=== PATIENT | male | born 1930 | race Caucasian/White ===

== ENCOUNTER 2017-12-09 16:02 | Inpatient (IN) ==
--- OUTSIDE RECORDS SUMMARY | 2017-12-09 16:16 | External Medical Summary | Referral Summary ---
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 Discharge Diagnosis: Benign essential hypertension Discharge Diagnosis: Diabetes mellitus, type 2 Discharge Diagnosis: Pure hypercholesterolemia Discharge Disposition: 01-Home or Self Care Attending Physician: Aakash Amos MD Admitting Physician: Aakash Amos MD Vital Signs Most recent to oldest [Reference Range]: 1 Temperature Tympanic [36.6-38.1 degC] 36.3 degC *LOW* (02/13/17 2:14 PM) Peripheral Pulse Rate [60-100 bpm] 80 bpm (02/13/17 2:14 PM) Respiratory Rate [14-20 br/min] 16 br/min (02/13/17 2:14 PM) Blood Pressure [90-140/60-90 mmHg] 104/56 mmHg (02/13/17 2:14 PM) Problem List Condition Effective Dates Status Health Status Informant Acquired deviated nasal Active septum(Confirmed) Anxiety(Confirmed) Resolved Aortic aneurysm(Confirmed) Active Arthritis(Confirmed) Active Benign essential hypertension Active (disorder)(Confirmed) Hyperplasia of prostate, Active unspecified, without urinary obstruction and other lower urinary symptoms (LUTS)(Confirmed) CAD(Confirmed) Resolved Cerebrovascular accident(Confirmed) Active Congestive heart failure, Active unspecified(Confirmed) COPD(Confirmed) Resolved Coronary arteriosclerosis Active (disorder)(Confirmed) Depression(Confirmed) Resolved Diabetes(Confirmed) Resolved Hyperlipidemia(Confirmed) Resolved Hyperplasia(Confirmed) Resolved Obesity(Confirmed) Active patient Prostatitis(Confirmed) Resolved Pure hypercholesterolemia Active (disorder)(Confirmed) Tobacco user(Confirmed) Active patient Diabetes mellitus, type 2(Confirmed) Active Allergies, Adverse Reactions, Alerts Substance Reaction Severity Status citalopram Nervous, Jittery Active Medications aspirin 81 mg, Oral, Daily, 0 Refill(s) Start Date: 09/06/14 Status: OrderedAstelin 137 mcg/inh nasal spray 1 sprays, Nasal, BID, in each nostril, # 1 Each, 1 Refill(s), Pharmacy: [id number] Start Date: 04/07/15 Status: Orderedatorvastatin 20 mg oral tablet See Instructions, TAKE 1 TABLET BY MOUTH EVERY EVENING, # 90 tabs, 5 Refill(s), eRx: [id number] Start Date: 12/02/16 Status: Orderedciclopirox 0.77% topical cream kwan, Topical, BID, 0 Refill(s) Start Date: 01/23/14 Status: Orderedclotrimazole-betamethasone 1%-0.05% topical cream See Instructions, APPLY TOPICALLY TWICE DAILY, # 45 g, eRx: [facility] [id number], APPLY TOPICALLY TWICE DAILY Start Date: 03/01/16 Status: Ordereddicyclomine 20 mg oral tablet 20 mg 1 tabs, Oral, QID, Anxiety, # 30 tabs, 0 Refill(s), Pharmacy: [id number], 1 tabs Oral QID,PRN:Anxiety Start Date: 11/07/16 Status: Orderedferrous sulfate 325 mg (65 mg elemental iron) oral tablet See Instructions, TAKE 1 TABLET BY MOUTH EVERY DAY, # 80 tabs, 2 Refill(s), eRx : [facility] [id number] Start Date: 12/16/16 Status: Orderedfinasteride 5 mg oral tablet See Instructions, TAKE 1 TABLET BY MOUTH EVERY DAY, # 90 tabs, 1 Refill(s), eRx : [facility] [id number] Start Date: 11/26/16 Status: Orderedfurosemide 20 mg oral tablet See Instructions, TAKE 2 TABLETS BY MOUTH EVERY MORNING AND EVERY DAY AT NOON, # 360 tabs, 1 Refill(s), eRx: [facility] [id number] Start Date: 10/31/16 Status: Orderedgabapentin 300 mg oral capsule See Instructions, TAKE 1 CAPSULE BY MOUTH THREE TIMES DAILY, # 90 caps, 1 Refill (s), eRx: [facility] [id number] Start Date: 12/11/16 Status: OrderedHome Oxygen (DME) DME Item DC portable O2 tanks. Patient has concentrator and generator., See Instructions, # 1 Each, 0 Refill(s), Supply Start Date: 02/08/16 Status: Orderedlisinopril 10 mg oral tablet See Instructions, TAKE 1 TABLET BY MOUTH DAILY, # 90 tabs, 1 Refill(s), eRx: [id number] Start Date: 09/30/16 Status: OrderedmetFORMIN 500 mg oral tablet See Instructions, TAKE 1 TABLET BY MOUTH THREE TIMES DAILY, # 270 tabs, 2 Refill (s), eRx: [facility] [id number] Start Date: 01/27/17 Status: OrderedMetoprolol Succinate ER 50 mg oral tablet, extended release See Instructions, TAKE 0.5 TABLET BY MOUTH TWICE A DAY., # 180 unknown unit, eRx : [facility] , TAKE 1 TABLET BY MOUTH TWICE A DAY. Start Date: 11/23/15 Status: Orderedmirtazapine 15 mg oral tablet See Instructions, TAKE 1 TABLET BY MOUTH AT BEDTIME, # 90 tabs, 1 Refill(s), eRx : [id number] Start Date: 10/31/16 Status: OrderedNasonex 50 mcg/inh nasal spray 1 sprays, Nasal, BID, # 17 g, 3 Refill(s), Pharmacy: [facility] [id number] Start Date: 04/07/15 Status: OrderedNorco 5 mg-325 mg oral tablet 2 tabs, Oral, q4hr, as needed for pain, 0 Refill(s) Start Date: 01/23/14 Status: Orderedomeprazole 20 mg oral delayed release capsule See Instructions, TAKE ONE CAPSULE BY MOUTH TWICE DAILY, # 180 caps, 1 Refill(s) , eRx: [id number] Start Date: 01/13/17 Status: OrderedPlavix Oral, Daily, 0 Refill(s) Start Date: 08/07/16 Status: Orderedterazosin 2 mg oral capsule See Instructions, TAKE ONE CAPSULE BY MOUTH AT BEDTIME, # 90 caps, 2 Refill(s), eRx: [id number], TAKE ONE CAPSULE BY MOUTH AT BEDTIME Start Date: 07/23/16 Status: Ordered Results No data available for this section Immunizations Given and Recorded Vaccine Date Status Refusal Reason influenza virus vaccine, H1N1, inactivat 08/04/09 Recorded influenza virus vaccine, inactivated 05/02/16 Given influenza virus vaccine, inactivated 05/25/14 Recorded influenza virus vaccine, inactivated1 05/18/13 Recorded influenza virus vaccine, live 05/18/13 Given influenza virus vaccine, live 06/14/11 Given pneumococcal 13-valent conjugate vaccine 03/21/15 Given pneumococcal 23-polyvalent vaccine 03/13/09 Recorded poliovirus vaccine, inactivated 04/17/14 Recorded tetanus/diphtheria/pertussis, acel(Tdap) 06/07/13 Recorded zoster vaccine live2 06/25/16 Recorded 1Result Comment: [04/27/2014 Uncharted] duplicate [id number] History: pt received at [facility] Procedures Procedure Date Related Diagnosis Body Site left Carotid endarterectomy 04/03/09 Esophagogastroduodenoscopy 12/08/08 Arthroscopy of knee Carotid endarterectomy gall bladder Knee replacement Social History Social History Type Response Smoking Status Former smoker; Type: Cigarettes; Tobacco use per day: Pack; Number of years: 50; Total pack years: 251 1dc 2008 Assessment and Plan Extracted from: Title: Office Visit Note Author: Aakash Amos MD Date: 02/13/17 Assessment/Plan 1.Diabetes mellitus, type 2 Overall this is been stable and elected not to do an A1c with this visit. Recheck in 3 months fasting lab at that time. Continue current treatment without change. 2.Coronary arteriosclerosis Chronic and stable without signs of angina or ischemia no change in current treatment is recommended. 3.Chronic combined systolic and diastolic heart failure He appears euvolemic. He does have some edema but no worse than usual. No change in current treatment recommended. 4.Benign essential hypertension Blood pressures well-controlled no change in current treatment at this time follow-up in 3 months fasting lab at that time. 5.Pure hypercholesterolemia Chronic stable no change in current treatment.
--- NOTE | 2017-12-09 16:59 | Emergency Department Report ---
SOB HPI - General Chief Complaint: Upper Respiratory Infection <Stef Cheung Bharati - 12/15/17 06:35 > Stated Complaint: cold congestion <Stef Cheung Q - 12/15/17 06:35> Source: patient, family <JjYulisa victoria Waqar Mejias 12/09/17 17:02> Mode of arrival: EMS <Yulisa Alonzo 12/09/17 17:02> Limitations: no limitations <Yulisa Alonzo 12/09/17 17:02> - History of Present Illness Pt presents per EMS with a complaint of cough and congestion. Pt uses home O2 and reports pt had been down in the mid 60s at times. She also states he has had an increased cough with "lots of" secretions. Denies fever but states he has had some increased confusion and weakness. Denies N/V/D, chest pain, or dizziness. Onset yesterday <Yulisa Alonzo 12/09/17 18:38> MD Complaint: cough <Yulisa Alonzo 12/09/17 17:02> Onset (ago): day(s) <Yulisa Alonzo 12/09/17 17:02> Severity: moderate <Yulisa Alonzo 12/09/17 17:02> Consistency/Duration: constant <Yulisa Alonzo 12/09/17 17:02> Relieving factors: nothing <Yulisa Alonzo 12/09/17 17:02> Exacerbating factors: lying flat, exertion <Yulisa Alonzo 12/09/17 17: 02> Known history of: COPD, congestive heart failure <Yulisa Alonzo 17:02> - Related Data Home Medications Medication Instructions Recorded Confirmed Atorvastatin Calcium 20 mg PO HS #0 08/25/15 12/09/17 Nitroglycerin [Nitrostat] 0.4 mg SL Q5M PRN #0 12/22/15 12/09/17 Aspirin [Aspirin EC] 81 mg PO DAILY 12/09/17 12/09/17 Clopidogrel [Plavix] 75 mg PO DAILY 12/09/17 12/09/17 Ferrous Sulfate 325 mg PO DAILY 12/09/17 12/09/17 Finasteride [Proscar] 5 mg PO DAILY 12/09/17 12/09/17 Furosemide [Lasix] 20 mg PO DAILY 12/09/17 12/09/17 Gabapentin 300 mg PO TID 12/09/17 12/09/17 Lisinopril [Prinivil] 10 mg PO DAILY 12/09/17 12/09/17 Metformin [Glucophage] 500 mg PO TIDWM 12/09/17 12/09/17 Metoprolol Succinate 50 mg PO DAILY 12/09/17 12/09/17 Mirtazapine [Remeron] 15 mg PO HS 12/09/17 12/09/17 Multi-Vitamin Plain [Theragran] 1 tab PO DAILY 12/09/17 12/09/17 Omeprazole 20 mg PO BID 12/09/17 12/09/17 Terazosin [Hytrin] 2 mg PO HS 12/09/17 12/09/17 Vit B Comp/C/FA/Iron Sulf/Nettie 1 each PO DAILY 12/09/17 12/09/17 [Stress Formula with Iron Tab] cefUROXime axetil [Cefuroxime] 500 mg PO BID 12/09/17 12/09/17 <Stef Cheung Q - 12/15/17 06:35> Allergies Allergy/AdvReac Type Severity Reaction Status Date / Time citalopram AdvReac Unknown NERVOUSNESS, Verified 06/19/16 10:40 JITTERY <Stef Cheung Q - 12/15/17 06:35> Review of Systems All systems: reviewed and negative except as stated <Yulisa Alonzo 17:02> Constitutional: Reports: as per HPI <Yulisa Alonzo 12/09/17 17:02> Cardiovascular: Reports: as per HPI <Yulisa Alonzo 12/09/17 17:02> Respiratory: Reports: as per HPI <Yulisa Alonzo 12/09/17 17:02> Gastrointestinal: Reports: as per HPI <Yulisa Alonzo 12/09/17 17:02> Neurological: Reports: as per HPI <Yulisa Alonzo 12/09/17 17:02> [facility] Patient Stated Medical History Cerebrovascular Accident Yes Coronary Artery Disease Yes: 1 STENT Hypertension Yes Chronic Obstructive Pulmonary Yes Disease (COPD) Diabetes Mellitus Type 2 Yes Gastroesophageal Reflux Yes Disease Osteoarthritis Yes Clinic Medical History (Last Reviewed 11/12/17 @ 20:58 by Oc Kelley MD) Stroke (Chronic Medical) Depression (Chronic Medical) Anxiety (Chronic Medical) <Stef Cheung Q - 12/15/17 06:35> Surgical History: Ruptured lymph gland. Left knee replacement. Aneurysm repair. Heart stent placement <Yulisa Alonzo 12/09/17 17:02> Family History: Family History (Last Reviewed 11/12/17 @ 20:58 by Oc Kelley MD) Mother No significant family history Father No significant family history <Stef Cheung Q - 12/15/17 06:35> - Social History Smoking status: Former smoker <Yulisa Alonzo 12/09/17 17:02> Alcohol intake frequency: does not drink <Yulisa Alonzo 12/09/17 17:02> Current occupational status: retired <Yulisa Alonzo 12/09/17 17:02> Physical Exam - Limitations Limitations: no limitations <Yulisa Alonzo 12/09/17 17:02> - General General appearance: alert, in no apparent distress <Yulisa Alonzo 12/09 17:02> - Normal Exams: Head:: Normocephalic without trauma <Yulisa Alonzo 12/09/17 17:02> Eyes:: Pupils are PERRLA w/ EOMI <Yulisa Alonzo 12/09/17 17:02> Cardiovascular:: Regular rate and rhythm, without murmur or gallop, Pulses 2+ all extremities, capillary refill, <2 seconds all extremities (2+ pitting pedal edema bilaterally) <Yulisa Alonzo 12/09/17 17:02> Abdomen:: Bowel sounds positive, soft, non-tender <Yulisa Alonzo 17:02> Musculoskeletal:: No tenderness, or deformity noted, good range of motion, all extremities <Yulisa Alonzo 12/09/17 17:02> Integumentary:: No rashes <Yuilsa Alonzo 12/09/17 17:02> Neurological:: Patient is alert, and oriented (oriented to self but unable to answer all questions appropriately), cranial nerves, motor/sensory/cerebellar, exams w/o gross deficits, to observation <Yulisa Alonzo Waqar Mejias 12/09/17 17:02> Psychiatric:: Patient exhibits, appropriate attention, emotion and affect < Yulisa Alonzo 12/09/17 17:02> - Expanded Respiratory Exam Location: Left: rhonchi, decreased breath sounds, Right: rhonchi, decreased breath sounds, Upper: rhonchi, Lower: decreased breath sounds <Yulisa Alonzo Magalie 12/09/17 17:02> Course Vital Signs Pulse Rate 83 12/09/17 16:05 Respiratory Rate 20 12/09/17 16:05 Blood Pressure 129/87 12/09/17 16:05 Pulse Oximetry 93 12/09/17 16:05 Temperature 97.8 F 12/15/17 04:00 Pulse Rate 63 12/15/17 04:00 Respiratory Rate 16 12/15/17 04:00 Blood Pressure 134/66 12/15/17 04:00 Pulse Oximetry 93 12/15/17 04:00 <Stef Cheung - 12/15/17 06:35> Shortness of Breath/Dyspnea - MDM Narrative Medical decision making narrative: X ray results and labs reviewed. PT has critical carbon Dioxide, ABG s obtained for comparison and found consistent. Pt given 40mg of Lasix as well as a Duoneb treatment. He continues to require 4l per NC. Dr Ca notified of findings and will admit. Findings and care discussed with pt and family who voice understanding of plan <JjjulietmoizYulisaene Mejias 12/09/17 18:38> - Differential Diagnosis Likely: acute exacerbation of chronic obstructive airways disease, congestive heart failure, community acquired pneumonia, asthma with exacerbation < Yulisa Alonzo 12/09/17 17:02> - Lab Data Attestation: I reviewed the patient's lab results. <RosalindAde rockwellene Mejias 12/09 18:38> Result diagrams: 12/15/17 05:06 12/15/17 05:06 <Stef Cheung - 12/15/17 06:35> Lab Results 04/12/09/17 12/09/17 Range/Units 16:54 16:55 16:55 WBC 5.8 (4.5-11.0) T/MM3 RBC 2.86 L (4.50-5.90) M/MM3 Hgb 9.3 L (13.5-17.5) GM/DL Hct 32.3 L (41-53) % MCV 112.9 H (80-100) UM3 MCH 32.5 (26-34) UUG MCHC 28.8 L (31-37) GM/DL RDW Std Deviation 49.3 (36.9-50.2) FL Plt Count 114 L (130-400) T/MM3 MPV 11.0 (9.4-12.4) UM3 Immature Gran % (Auto) 0.2 (0.0-0.5) % Neut % (Auto) 58.5 (33-66) % Lymph % (Auto) 24.9 (23-45) % [place] % (Auto) 15.0 H (0-9.0) % Eos % (Auto) 1.2 (0-4) % Baso % (Auto) 0.2 (0-2) % Neut # (Auto) 3.4 (1.8-7.7) T/MM3 Lymph # (Auto) 1.4 (1-4.8) T/MM3 [place] # (Auto) 0.9 H (0-0.8) T/MM3 Eos # (Auto) 0.1 (0-0.5) T/MM3 Baso # (Auto) 0.0 (0-0.2) T/MM3 Abs Immat Gran (auto) 0.01 (0.00-0.03) T/MM3 Sample Site ABG pH (7.350-7.450) ABG pCO2 (34.0-45.0) MMHG ABG pO2 (80.0-100.0) MMHG ABG HCO3 (22.0-26.0) MEQ/L ABG Total CO2 (23.0-27.0) MEQ/L ABG O2 Saturation (95.0-98.0) % ABG Base Excess (-2.0-2.0) MMOL/L Modified Eb Test Turbidity < 20 (0-20) Sodium 147 H (134-144) MEQ/L Potassium 4.9 (3.6-5) MEQ/L Chloride 97 L (98-107) MEQ/L Carbon Dioxide 42 H* (22-30) MEQ/L Anion Gap 8 (5-15) meq/L BUN 16.0 (9-20) MG/DL Creatinine 1.2 (0.8-1.5) mg/dL GFR Calculation 57 BUN/Creatinine Ratio 13 (6-26) RATIO Glucose 123 H (75-110) MG/DL Calculated Osmolality 284 H (261-280) MOSM/KG Calcium 8.4 (8.4-10.2) MG/DL Total Bilirubin 0.30 (0.20-1.30) MG/DL Icterus Index < 2 (0-7) AST 19 (17-59) U/L ALT 9 (1-50) U/L Alkaline Phosphatase 60 (38-126) U/L Troponin I 0.013 (0-0.12) ng/ml NT-Pro-B Natriuret Pep 3490 H (0-175) pg/mL Total Protein 5.8 L (6.3-8.2) g/dL Albumin 3.4 L (3.5-5.0) g/dL Globulin 2.4 (2.4-3.6) G/DL Albumin/Globulin Ratio 1.4 (1.1-2.2) RATIO Specimen Hemolysis < 15 < 15 (0-25) Ur Collection Type Urine Color (YELLOW) Urine Clarity Urine pH (5.0-8.0) Ur Specific [place] (1.015-1.025) Urine Protein (NEGATIVE) Urine Glucose (UA) (NEGATIVE) Urine Ketones (NEGATIVE) Urine Occult Blood (NEGATIVE) Urine Nitrate (NEGATIVE) Urine Bilirubin (NEGATIVE) Urine Urobilinogen (NORMAL) EU/DL Ur Leukocyte Esterase (NEGATIVE) Urinalysis Comment 12/09/17 12/09/17 Range/Units 17:15 17:40 WBC (4.5-11.0) T/MM3 RBC (4.50-5.90) M/MM3 Hgb (13.5-17.5) GM/DL Hct (41-53) % MCV (80-100) UM3 MCH (26-34) UUG MCHC (31-37) GM/DL RDW Std Deviation (36.9-50.2) FL Plt Count (130-400) T/MM3 MPV (9.4-12.4) UM3 Immature Gran % (Auto) (0.0-0.5) % Neut % (Auto) (33-66) % Lymph % (Auto) (23-45) % [place] % (Auto) (0-9.0) % Eos % (Auto) (0-4) % Baso % (Auto) (0-2) % Neut # (Auto) (1.8-7.7) T/MM3 Lymph # (Auto) (1-4.8) T/MM3 [place] # (Auto) (0-0.8) T/MM3 Eos # (Auto) (0-0.5) T/MM3 Baso # (Auto) (0-0.2) T/MM3 Abs Immat Gran (auto) (0.00-0.03) T/MM3 Sample Site L radial ABG pH 7.246 L (7.350-7.450) ABG pCO2 94 H* (34.0-45.0) MMHG ABG pO2 64.5 L (80.0-100.0) MMHG ABG HCO3 40.9 H (22.0-26.0) MEQ/L ABG Total CO2 43.7 H (23.0-27.0) MEQ/L ABG O2 Saturation 86.3 L (95.0-98.0) % ABG Base Excess 10.9 H (-2.0-2.0) MMOL/L Modified Eb Test Positive Turbidity (0-20) Sodium (134-144) MEQ/L Potassium (3.6-5) MEQ/L Chloride (98-107) MEQ/L Carbon Dioxide (22-30) MEQ/L Anion Gap (5-15) meq/L BUN (9-20) MG/DL Creatinine (0.8-1.5) mg/dL GFR Calculation BUN/Creatinine Ratio (6-26) RATIO Glucose (75-110) MG/DL Calculated Osmolality (261-280) MOSM/KG Calcium (8.4-10.2) MG/DL Total Bilirubin (0.20-1.30) MG/DL Icterus Index (0-7) AST (17-59) U/L ALT (1-50) U/L Alkaline Phosphatase (38-126) U/L Troponin I (0-0.12) ng/ml NT-Pro-B Natriuret Pep (0-175) pg/mL Total Protein (6.3-8.2) g/dL Albumin (3.5-5.0) g/dL Globulin (2.4-3.6) G/DL Albumin/Globulin Ratio (1.1-2.2) RATIO Specimen Hemolysis (0-25) Ur Collection Type Urine, cath straight Urine Color Yellow (YELLOW) Urine Clarity Clear Urine pH 5.5 (5.0-8.0) Ur Specific [place] 1.015 (1.015-1.025) Urine Protein Negative (NEGATIVE) Urine Glucose (UA) Negative (NEGATIVE) Urine Ketones Negative (NEGATIVE) Urine Occult Blood Negative (NEGATIVE) Urine Nitrate Negative (NEGATIVE) Urine Bilirubin Negative (NEGATIVE) Urine Urobilinogen 0.2 (NORMAL) EU/DL Ur Leukocyte Esterase Negative (NEGATIVE) Urinalysis Comment Microscopic not ind. <Stef Cheung Q - 12/15/17 06:35> Lab Results 12/09/17 12/09/17 12/09/17 Range/Units 16:54 16:55 16:55 WBC 5.8 (4.5-11.0) T/MM3 RBC 2.86 L (4.50-5.90) M/MM3 Hgb 9.3 L (13.5-17.5) GM/DL Hct 32.3 L (41-53) % MCV 112.9 H (80-100) UM3 MCH 32.5 (26-34) UUG MCHC 28.8 L (31-37) GM/DL RDW Std Deviation 49.3 (36.9-50.2) FL Plt Count 114 L (130-400) T/MM3 MPV 11.0 (9.4-12.4) UM3 Immature Gran % (Auto) 0.2 (0.0-0.5) % Neut % (Auto) 58.5 (33-66) % Lymph % (Auto) 24.9 (23-45) % Randolph % (Auto) 15.0 H (0-9.0) % Eos % (Auto) 1.2 (0-4) % Baso % (Auto) 0.2 (0-2) % Neut # (Auto) 3.4 (1.8-7.7) T/MM3 Lymph # (Auto) 1.4 (1-4.8) T/MM3 [place] # (Auto) 0.9 H (0-0.8) T/MM3 Eos # (Auto) 0.1 (0-0.5) T/MM3 Baso # (Auto) 0.0 (0-0.2) T/MM3 Abs Immat Gran (auto) 0.01 (0.00-0.03) T/MM3 Sample Site ABG pH (7.350-7.450) ABG pCO2 (34.0-45.0) MMHG ABG pO2 (80.0-100.0) MMHG ABG HCO3 (22.0-26.0) MEQ/L ABG Total CO2 (23.0-27.0) MEQ/L ABG O2 Saturation (95.0-98.0) % ABG Base Excess (-2.0-2.0) MMOL/L Modified Eb Test Turbidity < 20 (0-20) Sodium 147 H (134-144) MEQ/L Potassium 4.9 (3.6-5) MEQ/L Chloride 97 L (98-107) MEQ/L Carbon Dioxide 42 H* (22-30) MEQ/L Anion Gap 8 (5-15) meq/L BUN 16.0 (9-20) MG/DL Creatinine 1.2 (0.8-1.5) mg/dL GFR Calculation 57 BUN/Creatinine Ratio 13 (6-26) RATIO Glucose 123 H (75-110) MG/DL Calculated Osmolality 284 H (261-280) MOSM/KG Calcium 8.4 (8.4-10.2) MG/DL Total Bilirubin 0.30 (0.20-1.30) MG/DL Icterus Index < 2 (0-7) AST 19 (17-59) U/L ALT 9 (1-50) U/L Alkaline Phosphatase 60 (38-126) U/L Troponin I 0.013 (0-0.12) ng/ml NT-Pro-B Natriuret Pep 3490 H (0-175) pg/mL Total Protein 5.8 L (6.3-8.2) g/dL Albumin 3.4 L (3.5-5.0) g/dL Globulin 2.4 (2.4-3.6) G/DL Albumin/Globulin Ratio 1.4 (1.1-2.2) RATIO Specimen Hemolysis < 15 < 15 (0-25) Ur Collection Type Urine Color (YELLOW) Urine Clarity Urine pH (5.0-8.0) Ur Specific [place] (1.015-1.025) Urine Protein (NEGATIVE) Urine Glucose (UA) (NEGATIVE) Urine Ketones (NEGATIVE) Urine Occult Blood (NEGATIVE) Urine Nitrate (NEGATIVE) Urine Bilirubin (NEGATIVE) Urine Urobilinogen (NORMAL) EU/DL Ur Leukocyte Esterase (NEGATIVE) Urinalysis Comment 12/09/17 12/09/17 Range/Units 17:15 17:40 WBC (4.5-11.0) T/MM3 RBC (4.50-5.90) M/MM3 Hgb (13.5-17.5) GM/DL Hct (41-53) % MCV (80-100) UM3 MCH (26-34) UUG MCHC (31-37) GM/DL RDW Std Deviation (36.9-50.2) FL Plt Count (130-400) T/MM3 MPV (9.4-12.4) UM3 Immature Gran % (Auto) (0.0-0.5) % Neut % (Auto) (33-66) % Lymph % (Auto) (23-45) % [place] % (Auto) (0-9.0) % Eos % (Auto) (0-4) % Baso % (Auto) (0-2) % Neut # (Auto) (1.8-7.7) T/MM3 Lymph # (Auto) (1-4.8) T/MM3 [place] # (Auto) (0-0.8) T/MM3 Eos # (Auto) (0-0.5) T/MM3 Baso # (Auto) (0-0.2) T/MM3 Abs Immat Gran (auto) (0.00-0.03) T/MM3 Sample Site L radial ABG pH 7.246 L (7.350-7.450) ABG pCO2 94 H* (34.0-45.0) MMHG ABG pO2 64.5 L (80.0-100.0) MMHG ABG HCO3 40.9 H (22.0-26.0) MEQ/L ABG Total CO2 43.7 H (23.0-27.0) MEQ/L ABG O2 Saturation 86.3 L (95.0-98.0) % ABG Base Excess 10.9 H (-2.0-2.0) MMOL/L Modified Eb Test Positive Turbidity (0-20) Sodium (134-144) MEQ/L Potassium (3.6-5) MEQ/L Chloride (98-107) MEQ/L Carbon Dioxide (22-30) MEQ/L Anion Gap (5-15) meq/L BUN (9-20) MG/DL Creatinine (0.8-1.5) mg/dL GFR Calculation BUN/Creatinine Ratio (6-26) RATIO Glucose (75-110) MG/DL Calculated Osmolality (261-280) MOSM/KG Calcium (8.4-10.2) MG/DL Total Bilirubin (0.20-1.30) MG/DL Icterus Index (0-7) AST (17-59) U/L ALT (1-50) U/L Alkaline Phosphatase (38-126) U/L Troponin I (0-0.12) ng/ml NT-Pro-B Natriuret Pep (0-175) pg/mL Total Protein (6.3-8.2) g/dL Albumin (3.5-5.0) g/dL Globulin (2.4-3.6) G/DL Albumin/Globulin Ratio (1.1-2.2) RATIO Specimen Hemolysis (0-25) Ur Collection Type Urine, cath straight Urine Color Yellow (YELLOW) Urine Clarity Clear Urine pH 5.5 (5.0-8.0) Ur Specific [place] 1.015 (1.015-1.025) Urine Protein Negative (NEGATIVE) Urine Glucose (UA) Negative (NEGATIVE) Urine Ketones Negative (NEGATIVE) Urine Occult Blood Negative (NEGATIVE) Urine Nitrate Negative (NEGATIVE) Urine Bilirubin Negative (NEGATIVE) Urine Urobilinogen 0.2 (NORMAL) EU/DL Ur Leukocyte Esterase Negative (NEGATIVE) Urinalysis Comment Microscopic not ind. <Yulisa Alonzo 12/09/17 18:38> - Radiology Data Attestation: I reviewed the patient's radiology results. (read per Dr Helm with comparison atelectasis/scarring/pneumonia) <Yulisa Alonzo 12/09/17 18: 38> - EKG Data EKG #1 EKG attestation: Yes: I reviewed and interpreted this EKG. <Stef Cheung 12/15/17 06:35> Rate: normal <CatoosaStef reardon 12/15/17 06:35> Rhythm: NSR <JonatanStef reardon 12/15/17 06:35> [place]/QRS: left axis deviation <Stef Cheung 12/15/17 06:35> Ectopy: PVC <JonatanStef reardon 12/15/17 06:35> Interpretation: no acute changes <CatoosaStef reardon 12/15/17 06:35> Disposition Clinical Impression: Hypercarbia, COPD exacerbation CHF exacerbation Qualifiers: Heart failure type: unspecified Qualified Code(s): I50.9 - Heart failure, unspecified <CatoosaStef reardon 12/15/17 06:35> Disposition: 02 To [facility] [place] <Stef Cheung 12/15/17 06:35> Condition: Improved <Stef Cheung 12/15/17 06:35> Instructions: <Jonatan,Stef 12/15/17 06:35> Prescriptions: No Action Nitroglycerin [Nitrostat] 0.4 mg SL Q5M PRN #0 PRN Reason: CHEST PAIN Clopidogrel [Plavix] 75 mg PO DAILY Furosemide [Lasix] 20 mg PO DAILY Ferrous Sulfate 325 mg PO DAILY Metoprolol Succinate 50 mg PO DAILY Gabapentin 300 mg PO TID Omeprazole 20 mg PO BID Finasteride [Proscar] 5 mg PO DAILY Multi-Vitamin Plain [Theragran] 1 tab PO DAILY Aspirin [Aspirin EC] 81 mg PO DAILY Metformin [Glucophage] 500 mg PO TIDWM cefUROXime axetil [Cefuroxime] 500 mg PO BID Mirtazapine [Remeron] 15 mg PO HS Terazosin [Hytrin] 2 mg PO HS Atorvastatin Calcium 20 mg PO HS #0 Lisinopril [Prinivil] 10 mg PO DAILY Vit B Comp/C/FA/Iron Sulf/Nettie [Stress Formula with Iron Tab] 1 each PO DAILY <Stef Cheung 12/15/17 06:35> Referrals: Aakash Amos MD [Primary Care Provider] - <Stef Cheung - 12/15/17 06:35> Forms: <Stef Cheung Q - 12/15/17 06:35> Time of Disposition: 18:37 <Yulisa Alonzo - 12/09/17 18:38> - Seen By: midlevel <Yulisa Alonzo - 12/09/17 18:38>
--- NOTE | 2017-12-09 17:02 | XRay Report ---
INDICATION: cough PROCEDURE: CHEST 2-VIEWS UPRIGHT (PA & LAT) Encounter: Initial COMPARISON: December 22, 2015 FINDINGS: Lungs show mild basilar airspace disease in the posterior lower lobes on the lateral view. Some of this is chronic. Chronic area of scarring in the left base. No pleural effusion or pneumothorax. Cardiac silhouette remains enlarged. Mediastinal contours are stable. Pulmonary vascularity is normal. Impression: Posterior lower lobe airspace opacities could represent pneumonia, atelectasis or scarring. .
[2017-12-09] MEDS ORDERED: FUROSEMIDE 40 MG/4 ML INJECTION IVP ONE (17:47)
[2017-12-09] MEDS: SALINE FLUSH 10ml SYRINGE IVF PRN (17:52)
[2017-12-09] MEDS ORDERED: ALBUTEROL/IPRATROPIUM 2.5mg-0.5mg/3ml NEB AEROSOL ONE (18:10)
--- NOTE | 2017-12-09 19:23 | History & Physical Report ---
History of Present Illness Date: 12/09/17 (Dr Amos- PCP) Chief complaint: Increasing cough, wekanes and low O2 sats HPI: Pt is an 87 yo male who has had a 2 day h/o of cough, increased mucous, weakness and low O2 sats. noted sats in the 60-70's this am prompting his ER visit. He is usually on 2L O2 at home. No Bipap or CPAP. History taken from pt and his in the CCU. Review of Systems All systems PM: 10-point ROS was reviewed, no additional remarkable complaints except (SOA, weakness, increasing mucous production, some confusion noted by ) Past Medical History Medical History: Medical History (Last Reviewed 11/12/17 @ 20:58 by Oc Kelley MD) Stroke (Chronic) Depression (Chronic) Anxiety (Chronic) Medical History Updates: HTN, chronic diastolic heart failure, dyslipidemia, cerebrovascular disease history of CVA in 2008, type 2 diabetes, stage II chronic kidney disease, GERD, BPH, osteoarthritis, chronic back pain, depression Surgical History: Ruptured lymph gland. Left knee replacement. Aneurysm repair. Heart stent placement Family History: Family History (Last Reviewed 11/12/17 @ 20:58 by cO Kelley MD) Mother No significant family history Father No significant family history Family History: As Above - Social History Smoking status: Former smoker Substance use type: does not use Household members: spouse Current occupational status: retired Medications Home Medications Medication Instructions Recorded Confirmed Type Atorvastatin Calcium 20 mg PO HS #0 08/25/15 12/09/17 History Nitroglycerin [Nitrostat] 0.4 mg SL Q5M PRN #0 12/22/15 12/09/17 History Aspirin [Aspirin EC] 81 mg PO DAILY 12/09/17 12/09/17 History Clopidogrel [Plavix] 75 mg PO DAILY 12/09/17 12/09/17 History Ferrous Sulfate 325 mg PO DAILY 12/09/17 12/09/17 History Finasteride [Proscar] 5 mg PO DAILY 12/09/17 12/09/17 History Furosemide [Lasix] 20 mg PO DAILY 12/09/17 12/09/17 History Gabapentin 300 mg PO TID 12/09/17 12/09/17 History Lisinopril [Prinivil] 10 mg PO DAILY 12/09/17 12/09/17 History Metformin [Glucophage] 500 mg PO TIDWM 12/09/17 12/09/17 History Metoprolol Succinate 50 mg PO DAILY 12/09/17 12/09/17 History Mirtazapine [Remeron] 15 mg PO HS 12/09/17 12/09/17 History Multi-Vitamin Plain [Theragran] 1 tab PO DAILY 12/09/17 12/09/17 History Omeprazole 20 mg PO BID 12/09/17 12/09/17 History Terazosin [Hytrin] 2 mg PO HS 12/09/17 12/09/17 History Vit B Comp/C/FA/Iron Sulf/Nettie 1 each PO DAILY 12/09/17 12/09/17 History [Stress Formula with Iron Tab] cefUROXime axetil [Cefuroxime] 500 mg PO BID 12/09/17 12/09/17 History Allergies Allergy/AdvReac Type Severity Reaction Status Date / Time citalopram AdvReac Unknown NERVOUSNESS, Verified 06/19/16 10:40 JITTERY Exam Vital Signs: Pulse Rate 82 12/09/17 19:02 Respiratory Rate 20 12/09/17 18:25 Blood Pressure 112/61 12/09/17 19:01 Pulse Oximetry 91 12/09/17 19:02 - Constitutional Present: no acute distress, well nourished, well developed - Routine HEENT Exam Head: Present: normocephalic, atraumatic Eye: Present: EOMI, PERRL ENT: Present: mucous membranes moist, oropharynx clear - Routine Neck Exam Present: supple. Absent: lymphadenopathy, thyromegaly - Routine Respiratory Exam Present: decreased breath sounds, diminished air movement. Absent: wheezes Comments: sounds are decreased but coarse - Routine Cardiovascular Exam Present: RRR, no murmur Comments: occ ectopy - Routine Abdominal Exam Present: soft, normoactive bowel sounds. Absent: tenderness, distended - Routine Extremities Exam Present: edema (+2 pitting b/l), normal capillary refill - Routine Skin Exam Present: dry, warm - Routine Neurological Exam Present: alert, normal speech oriented to self. Some forgetfulness. Loses train of thought. Recognizes family members. Answers most questions appropriately. - Routine Psychiatric Exam Present: normal affect, cooperative Results - Labs CBC & Chem 7: 12/09/17 16:55 12/09/17 16:55 Labs: Laboratory Tests 12/09/17 18:20 Entero/Rhino (PCR) Detected A* Microbiology Results: Microbiology 12/09/17 18:42 Peripheral/Iv Start Blood Culture - Preliminary Culture Initiated - Results Pending 12/09/17 18:55 Peripheral/Iv Start Blood Culture - Preliminary Culture Initiated - Results Pending - ABG Interpretation ABG results: Laboratory Tests 12/09/17 17:40 Sample Site L radial ABG pH 7.246 L ABG pCO2 94 H* ABG pO2 64.5 L ABG HCO3 40.9 H ABG Total CO2 43.7 H ABG O2 Saturation 86.3 L ABG Base Excess 10.9 H Modified Eb Test Positive - Imaging and Cardiology Chest x-ray Additional comments: Date of Exam: 12/09/17 INDICATION: cough PROCEDURE: CHEST 2-VIEWS UPRIGHT (PA & LAT) FINDINGS: Lungs show mild basilar airspace disease in the posterior lower lobes on the lateral view. Some of this is chronic. Chronic area of scarring in the left base. No pleural effusion or pneumothorax. Cardiac silhouette remains enlarged. Mediastinal contours are stable. Pulmonary vascularity is normal. Impression: Posterior lower lobe airspace opacities could represent pneumonia, atelectasis or scarring. Assessment and Plan (1) Acute respiratory failure with hypoxia and hypercapnia Current visit: Yes Status: Acute Assessment and Plan: Assessment Acute hypoxic, hypercapnic respiratory failure secondary to rhinovirus Generalized weakness secondary to viral illness Hypernatremia - POA Anemia - POA Thrombocytopenia - POA HTN Chronic diastolic heart failure Dyslipidemia Cerebrovascular disease history of CVA in 2008, Type 2 diabetes Stage II chronic kidney disease GERD BPH Osteoarthritis Chronic back pain Depression Plan Admit to CCU for Bipap, breathing tx, close observation. Stay expected to exceed 2 overnights given his respiratory failure and comorbidities. Respiratory panel + for rhinovirus. ABG's -significant hypercapnia. BiPAP ordered. Blood cultures have been collected. Start Rocephin 1 g IV every 24 hours. Continue home meds, including metformin for diabetes. Lactate and kidney function are normal, vital signs are stable. Accu-Cheks before meals and at bedtime. If stable, can DC after a day or 2. Hold off on IVF's for now given his heart failure. Does not appear dehydrated. Will follow his I&O's. Repeat labs in a.m. to follow blood counts, renal function and electrolytes. SCD's for DVT PPx Code status: Full code Care to return to Dr Amos on discharge 12/09/2017-9:30 PM-I reviewed this chart, the patient history, and the [employer]'s/PA 's documented findings as above. We discussed and formulated the assessment and plan as above with the additions below.-Dr. Ca Patient was seen this evening in CCU. He is mildly confused. He denies feeling short of breath. He does have a productive cough. His only complaint is about the bed. Family is currently not present. On exam he is alert but mildly confused. He states he is in the "scrub section" of the hospital. He knows he is in [place] and its 2018. HEENT reveals sclerae to be anicteric, pupils are equal, oropharynx is moist. Neck is supple. Chest reveals some mild rhonchi and expiratory wheezes in the bases. He has a wet cough. Cardiovascular reveals a regular rate and rhythm. Abdomen is soft and nontender. Extremities are free of edema. Pertinent lab includes hemoglobin of 9.5 with MCV of 112. Sodium is 147. Lactate and pro-calcitonin are normal. ABG reveals a pH of 7.246, PCO2 94, PO2 of 64. Impression Acute on chronic hypoxic and hypercapnic respiratory failure Rhinovirus Infiltrate on chest x-ray, possible pneumonia Hypernatremia Macrocytic anemia Diastolic heart failure Chronic respiratory failure on 2 L of oxygen-uncertain his cause of chronic hypoxia Plan Admit to CCU. BiPAP as tolerated. Repeat ABG in the morning. Monitor Accu-Cheks. Hold metformin for now. Check iron panel, B-12 and folate regarding anemia. DVT Prophylaxis: SCD's Resuscitation Status: Full Code - Physician Narrative Physician: Ailin Ca MD Narrative: Date: 12/09/17 Time: 1919 Hospital Course Summary Disclaimer: The visit summary below is not to be considered part of the above Progress Note. Hospital Course: 12/09/17 Hospital admission to CCU Admit to CCU for Bipap, breathing tx, close observation. Stay expected to exceed 2 overnights given his respiratory failure and comorbidities. Respiratory panel + for rhinovirus. ABG's -significant hypercapnia. BiPAP ordered. Blood cultures have been collected. Start Rocephin 1 g IV every 24 hours. Continue home meds, including metformin for diabetes. Lactate and kidney function are normal, vital signs are stable. Accu-Cheks before meals and at bedtime. If stable, can DC after a day or 2. Hold off on IVF's for now given his heart failure. Does not appear dehydrated. Will follow his I&O's. Repeat labs in a.m. to follow blood counts, renal function and electrolytes. SCD's for DVT PPx Code status: Full code Care to return to Dr Amos on discharge
[2017-12-09 19:37] VITALS: BMI 35.1
[2017-12-09] MEDS ORDERED: NITROGLYCERIN 0.4 MG SUBLINGUAL TABLET SL PRN (20:23)
[2017-12-09] MEDS: GABAPENTIN 300 MG CAPSULE PO SCH (21:41)
[2017-12-09] MEDS: TERAZOSIN 2 MG CAPSULE PO SCH (21:41)
[2017-12-09] MEDS: CEFTRIAXONE 1 G in NS 100 ML IV SCH (21:41)
[2017-12-09] MEDS: MIRTAZAPINE 15 MG TABLET PO SCH (21:41)
[2017-12-09] MEDS: ATORVASTATIN 20 MG TABLET PO SCH (21:41)
[2017-12-10] MEDS: HALOPERIDOL 5 MG/ML INJECTION IVP PRN ×3 (01:16→22:22)
[2017-12-10] MEDS: MORPHINE SULFATE 2mg INJ IVP PRN (01:18)
[2017-12-10] MEDS: ALBUTEROL/IPRATROPIUM 2.5mg-0.5mg/3ml NEB AEROSOL SCH ×4 (06:56→19:21)
[2017-12-10] MEDS ORDERED: METFORMIN 500 MG TABLET PO SCH (08:00)
[2017-12-10] MEDS: OMEPRAZOLE 20 MG CAPSULE PO SCH ×3 (08:03→17:38)
--- NOTE | 2017-12-10 08:12 | XRay Report ---
Indication: pneumonia PROCEDURE: XR chest 1V: Encounter: Initial Comparison: December 09, 2017 Findings: No radiographically apparent airspace opacity on this one view exam. No pleural effusion or pneumothorax. Cardiomediastinal contours and pulmonary vascularity are unchanged. Impression: No acute cardiopulmonary disease. .
[2017-12-10] MEDS: GABAPENTIN 300 MG CAPSULE PO SCH ×3 (08:30→20:06)
[2017-12-10] MEDS: MULTI-VITAMIN PLAIN TABLET PO SCH (08:31)
[2017-12-10] MEDS: CLOPIDOGREL 75 MG TABLET PO SCH (08:31)
[2017-12-10] MEDS: LISINOPRIL 10 MG TABLET PO SCH (08:32)
[2017-12-10] MEDS: FUROSEMIDE 20 MG TABLET PO SCH (08:32)
[2017-12-10] MEDS: FERROUS SULFATE 324 MG TABLET PO SCH (08:32)
[2017-12-10] MEDS: ASPIRIN *EC* 81 MG TABLET PO SCH (08:33)
[2017-12-10] MEDS: FINASTERIDE 5 MG TABLET PO SCH (08:34)
[2017-12-10] MEDS: SALINE FLUSH 10ml SYRINGE IVF PRN ×2 (08:37→14:58)
--- NOTE | 2017-12-10 10:00 | Progress Note ---
- Date 12/10/17 Subjective: Events of last night were reviewed. The patient did have some agitation requiring Haldol and morphine. After receiving these medications, he was able to tolerate BiPAP and slept pretty well. ABG this morning shows improvement in pH and PCO2. This morning he is more alert. He continues to be somewhat confused. He did not realize he was at [facility]. He states he had "a hell of the night". He has some chronic left shoulder pain, but otherwise no complaints of pain. He denies any chest or abdominal pain. He denies feeling short of breath. He ate a little bit of oatmeal for breakfast and drink his coffee. His appetite is not good this morning. Family is not here currently. Objective Vital signs: Temperature 98.2 F 12/10/17 04:00 Pulse Rate 61 12/10/17 07:00 Respiratory Rate 20 12/10/17 06:56 Blood Pressure 133/61 12/10/17 06:00 Pulse Oximetry 100 12/10/17 06:56 Height/Weight/BMI: Height 1.75 m Weight 108.4 kg Body Mass Index 35.1 Comments: I&O 340/650 Afebrile, heart rate 86, blood pressure 112/53, O2 sat was 96% on 5 L. Currently O2 sat is 95% on 3 L. On 2 L earlier, O2 sats were 87-89%. He is normally on 2 L at home. GEN-alert, mildly confused, no acute distress HEENT-oropharynx is moist NECK-supple, no JVD CV-regular rate, frequent ectopy with PVCs on telemetry. CHEST-mild expiratory wheezing I laterally. Coughing less than last night ABD-soft, nontender with positive bowel sounds -no [place] EXT-+1 edema, SCDs are on NEURO-no focal deficits, mildly confused this morning SKIN-warm and dry Results - Labs CBC & Chem 7: 12/10/17 04:40 12/10/17 04:40 Labs: ABG this morning showed pH of 7.35, PCO2 74, PO2 of 81 Iron, B-12 and folate are pending Microbiology Results: Microbiology 12/09/17 18:42 Peripheral/Iv Start Blood Culture - Preliminary Culture Initiated - Results Pending 12/09/17 18:55 Peripheral/Iv Start Blood Culture - Preliminary Culture Initiated - Results Pending - ABG Interpretation ABG results: 12/10/17 04:16 ABG pH 7.350 ABG pCO2 74 H* ABG pO2 81.5 ABG HCO3 40.7 H ABG Total CO2 43.0 H ABG O2 Saturation 94.6 L ABG Base Excess 13.1 H - Impressions Chest x-ray this morning is clear. This is an improvement from yesterday Assessment and Plan (1) Acute respiratory failure with hypoxia and hypercapnia Current visit: Yes Status: Acute Assessment and Plan: Assessment Acute hypoxic, hypercapnic respiratory failure secondary to rhinovirus Generalized weakness secondary to viral illness Hypernatremia - POA Macrocytic Anemia - POA Thrombocytopenia - POA HTN Chronic diastolic heart failure Severe pulmonary hypertension with tricuspid regurg Possible pneumonia with infiltrate on chest x-ray on admission, repeat chest x- ray 12/10 is clear History of tobacco use. Unknown if he has been evaluated for COPD Dyslipidemia Cerebrovascular disease history of CVA in 2008, Type 2 diabetes Stage II chronic kidney disease GERD BPH Osteoarthritis Chronic back pain Depression Plan Respiratory status has improved after BiPAP overnight. He likely has chronic CO2 retention. Dr. Christy was consulted for acute on chronic hypoxic and hypercapnic respiratory failure. Continue BiPAP when necessary for now. Possible COPD with COPD exacerbation. He does have bilateral wheezing on exam. Will add oral steroids and continue breathing treatments. Increase activity as tolerated. Await iron panel, B-12 and folate. Monitor Accu-Cheks and give supplemental insulin as needed. - Physician Narrative Narrative: Date: 12/10/17 Time: 0955 Hospital Course Summary Disclaimer: The visit summary below is not to be considered part of the above Progress Note. Hospital Course: 12/09/17 Hospital admission to CCU Admit to CCU for Bipap, breathing tx, close observation. Stay expected to exceed 2 overnights given his respiratory failure and comorbidities. Respiratory panel + for rhinovirus. ABG's -significant hypercapnia. BiPAP ordered. Blood cultures have been collected. Start Rocephin 1 g IV every 24 hours. Continue home meds, including metformin for diabetes. Lactate and kidney function are normal, vital signs are stable. Accu-Cheks before meals and at bedtime. If stable, can DC after a day or 2. Hold off on IVF's for now given his heart failure. Does not appear dehydrated. Will follow his I&O's. Repeat labs in a.m. to follow blood counts, renal function and electrolytes. SCD's for DVT PPx Code status: Full code Care to return to Dr Amos on discharge
--- NOTE | 2017-12-10 10:35 | Pulmonology Consult Note ---
<Shena,Erica Jorgito - Last Filed: 12/10/17 10:25> History of Present Illness Consult date: 12/10/17 Requesting physician: Ailin Ca Reason for consult: dyspnea, cough, COPD, pulmonary hypertension Chief complaint: cough, SOB History of present illness: This is an 87 yo male with a Hx of pulmonary HTN and VHD. Likely with COPD with over 40yrs of smoking, quit 20 yrs ago. Per report he presented to the [facility] per EMS with complaints of cough and congestion. Pt was confused last noc so he is not sure on events leading to admit. Per the he had increased cough with increased secretions for the past day, along with low oxygen levels on his home O2 of 2L. He was navid noted to have increased weakness, confusion and lethargy. Per report he denied N/V/D, fevers, chest pain, or dizziness. ABG on admit was 7.24/94/64 and was started on bipap F18, 20/8 and 35%. CXR showed small basilar infiltrates and was started on Rocephin, afebrile and normal WBC on admit. We were consulted for his pulmonary issues and appreciate the consult. Review of Systems Review of systems: pt confused on recent events, pertinent positives in the HPI. [facility] Patient Stated Medical History Cerebrovascular Accident Yes Coronary Artery Disease Yes: 1 STENT Hypertension Yes Chronic Obstructive Pulmonary Yes Disease (COPD) Diabetes Mellitus Type 2 Yes Gastroesophageal Reflux Yes Disease Osteoarthritis Yes Clinic Medical History (Last Reviewed 11/12/17 @ 20:58 by Oc Kelley MD) Stroke (Chronic Medical) Depression (Chronic Medical) Anxiety (Chronic Medical) Medical History Updates: HTN, chronic diastolic heart failure, dyslipidemia, cerebrovascular disease history of CVA in 2008, type 2 diabetes, stage II chronic kidney disease, GERD, BPH, osteoarthritis, chronic back pain, depression Surgical History: Ruptured lymph gland. Left knee replacement. Aneurysm repair. Heart stent placement Family History: Family History (Last Reviewed 11/12/17 @ 20:58 by Oc Kelley MD) Mother No significant family history Father No significant family history - Social History Smoking status: Former smoker Substance use type: does not use Alcohol intake frequency: does not drink Household members: spouse Current occupational status: retired Medications Home Medications Medication Instructions Recorded Confirmed Type Atorvastatin Calcium 20 mg PO HS #0 08/25/15 12/09/17 History Nitroglycerin [Nitrostat] 0.4 mg SL Q5M PRN #0 12/22/15 12/09/17 History Aspirin [Aspirin EC] 81 mg PO DAILY 12/09/17 12/09/17 History Clopidogrel [Plavix] 75 mg PO DAILY 12/09/17 12/09/17 History Ferrous Sulfate 325 mg PO DAILY 12/09/17 12/09/17 History Finasteride [Proscar] 5 mg PO DAILY 12/09/17 12/09/17 History Furosemide [Lasix] 20 mg PO DAILY 12/09/17 12/09/17 History Gabapentin 300 mg PO TID 12/09/17 12/09/17 History Lisinopril [Prinivil] 10 mg PO DAILY 12/09/17 12/09/17 History Metformin [Glucophage] 500 mg PO TIDWM 12/09/17 12/09/17 History Metoprolol Succinate 50 mg PO DAILY 12/09/17 12/09/17 History Mirtazapine [Remeron] 15 mg PO HS 12/09/17 12/09/17 History Multi-Vitamin Plain [Theragran] 1 tab PO DAILY 12/09/17 12/09/17 History Omeprazole 20 mg PO BID 12/09/17 12/09/17 History Terazosin [Hytrin] 2 mg PO HS 12/09/17 12/09/17 History Vit B Comp/C/FA/Iron Sulf/Nettie 1 each PO DAILY 12/09/17 12/09/17 History [Stress Formula with Iron Tab] cefUROXime axetil [Cefuroxime] 500 mg PO BID 12/09/17 12/09/17 History Allergies Allergy/AdvReac Type Severity Reaction Status Date / Time citalopram AdvReac Unknown NERVOUSNESS, Verified 06/19/16 10:40 JITTERY Exam Vital signs: Temperature 98.2 F 12/10/17 04:00 Pulse Rate 61 12/10/17 07:00 Respiratory Rate 20 12/10/17 06:56 Blood Pressure 133/61 12/10/17 06:00 Pulse Oximetry 100 12/10/17 06:56 - Constitutional no acute distress, well nourished, average body habitus, cooperative - Routine HEENT Exam Head: Present: normocephalic, atraumatic Eye: Present: EOMI, PERRL ENT: Present: mucous membranes moist Nose: moist mucous membranes - Routine Neck Exam Present: supple, full ROM, trachea midline - Routine Respiratory Exam Present: rhonchi, wheezes. Absent: accessory muscle use, patient mechanically ventilated - Routine Cardiovascular Exam Present: RRR, S1, S2, no murmur - Routine Abdominal Exam Present: soft, normoactive bowel sounds - Routine Extremities Exam Present: edema, non tender, full ROM - Routine Back/Spine/Pelvis Exam Back/Spine: Present: full ROM - Routine Skin Exam Present: intact, dry - Routine Neurological Exam Present: alert, oriented X3, CN II-XII intact - Routine Psychiatric Exam Present: normal affect, cooperative Results - Laboratory Findings CBC and BMP: 12/10/17 04:40 12/10/17 04:40 ABG ABG pH 7.350 (7.350-7.450) 12/10/17 04:16 ABG pCO2 74 MMHG (34.0-45.0) H* 12/10/17 04:16 ABG pO2 81.5 MMHG (80.0-100.0) 12/10/17 04:16 ABG O2 Saturation 94.6 % (95.0-98.0) L 12/10/17 04:16 Abnormal lab findings: Abnormal Labs 12/09/17 12/10/17 12/10/17 18:20 04:16 04:40 RBC 2.63 L Hgb 8.5 L Hct 29.2 L MCV 111.0 H MCHC 29.1 L Plt Count 113 L Alfalfa % (Auto) 13.7 H ABG pCO2 74 H* ABG HCO3 40.7 H ABG Total CO2 43.0 H ABG O2 Saturation 94.6 L ABG Base Excess 13.1 H Sodium Chloride Carbon Dioxide Calculated Osmolality Magnesium Total Protein Albumin Globulin Entero/Rhino (PCR) Detected A* 12/10/17 12/10/17 04:40 04:40 RBC Hgb Hct MCV MCHC Plt Count Alfalfa % (Auto) ABG pCO2 ABG HCO3 ABG Total CO2 ABG O2 Saturation ABG Base Excess Sodium 145 H Chloride 95 L Carbon Dioxide 45 H* Calculated Osmolality 282 H Magnesium 1.5 L Total Protein 5.4 L Albumin 3.1 L Globulin 2.3 L Entero/Rhino (PCR) - Diagnostic Findings Chest x-ray: image reviewed (CXR still with improvement in basilar infiltrates) Assessment and Plan - Assessment and Plan Acute on Chronic Hypoxic Hypercapnic respiratory Failure Likely COPD with exacerbation - 2L O2 at home, no meds or prior workup RSV Pulmonary Hypertension 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 Used bipap f18, 20/8, 35% with use of haldol and morphine with improved ABG and mentation. ABG 7.26/94/64 > 7.35/74/80, likely requires a home vent to mask if he is willing to use at home. On BT's with A/A QID and prednisone 20mg. + RSV, on Rocephin for basilar infiltrates, no sputum cx, BC NTD. Would encourage IS. Would likely benefit from OP BT's and OP PFT for COPD severity. Has a Hx of Pulmonary HTN, VHD, does have BLE edema and pro BNP 3400, may benefit from gentle diuresis. - Time Spent With Patient Total time spent is greater than 50% in coordination of care (as documented) at patient's floor/unit and/or counseling patient: 25 - 35 minutes <Guillermo Christy - Last Filed: 12/11/17 13:10> [facility] Patient Stated Medical History Cerebrovascular Accident Yes Coronary Artery Disease Yes: 1 STENT Hypertension Yes Chronic Obstructive Pulmonary Yes Disease (COPD) Diabetes Mellitus Type 2 Yes Gastroesophageal Reflux Yes Disease Osteoarthritis Yes Clinic Medical History (Last Reviewed 11/12/17 @ 20:58 by Oc Kelley MD) Stroke (Chronic Medical) Depression (Chronic Medical) Anxiety (Chronic Medical) Family History: Family History (Last Reviewed 11/12/17 @ 20:58 by Oc Kelley MD) Mother No significant family history Father No significant family history Exam Vital signs: Temperature 98.0 F 12/11/17 08:00 Pulse Rate 80 12/11/17 12:15 Respiratory Rate 40 H 12/11/17 12:15 Blood Pressure 122/60 12/11/17 12:00 Pulse Oximetry 94 12/11/17 12:15 Results - Laboratory Findings CBC and BMP: 12/11/17 04:13 12/11/17 04:13 ABG ABG pH 7.350 (7.350-7.450) 12/10/17 04:16 ABG pCO2 74 MMHG (34.0-45.0) H* 12/10/17 04:16 ABG pO2 81.5 MMHG (80.0-100.0) 12/10/17 04:16 ABG O2 Saturation 94.6 % (95.0-98.0) L 12/10/17 04:16 Abnormal lab findings: Abnormal Labs 12/09/17 12/10/17 12/10/17 18:20 04:16 04:40 RBC 2.63 L Hgb 8.5 L Hct 29.2 L MCV 111.0 H MCHC 29.1 L Plt Count 113 L Neut % (Auto) Lymph % (Auto) Alfalfa % (Auto) 13.7 H Lymph # (Auto) ABG pCO2 74 H* ABG HCO3 40.7 H ABG Total CO2 43.0 H ABG O2 Saturation 94.6 L ABG Base Excess 13.1 H Sodium Chloride Carbon Dioxide BUN Glucose Calculated Osmolality Magnesium Total Protein Albumin Globulin Entero/Rhino (PCR) Detected A* 12/10/17 12/10/17 12/11/17 04:40 04:40 04:13 RBC 2.66 L Hgb 8.6 L Hct 28.3 L MCV 106.4 H MCHC 30.4 L Plt Count 116 L Neut % (Auto) 77.3 H Lymph % (Auto) 13.2 L Alfalfa % (Auto) 9.1 H Lymph # (Auto) 0.6 L ABG pCO2 ABG HCO3 ABG Total CO2 ABG O2 Saturation ABG Base Excess Sodium 145 H Chloride 95 L Carbon Dioxide 45 H* BUN Glucose Calculated Osmolality 282 H Magnesium 1.5 L Total Protein 5.4 L Albumin 3.1 L Globulin 2.3 L Entero/Rhino (PCR) 12/11/17 04:13 RBC Hgb Hct MCV MCHC Plt Count Neut % (Auto) Lymph % (Auto) Alfalfa % (Auto) Lymph # (Auto) ABG pCO2 ABG HCO3 ABG Total CO2 ABG O2 Saturation ABG Base Excess Sodium Chloride 93 L Carbon Dioxide 39 H BUN 26.0 H Glucose 141 H Calculated Osmolality Magnesium Total Protein Albumin 3.2 L Globulin Entero/Rhino (PCR) Assessment and Plan (1) Acute and chronic respiratory failure with hypercapnia Status: Acute Assessment and plan: BIPAP as needed. Patient refused to use last night, therefore it seems that he is unlikely to tolerate home vent to mask. Continue O2 to keep SpO2 >90% Current Visit: Yes (2) Rhinovirus Status: Acute Assessment and plan: causing exacerbation of COPD Current Visit: Yes (3) COPD exacerbation Status: Acute Assessment and plan: he is on home O2 and his flow rate should be adjusted to maintain sat > 90% Neb budesonide BID, ipratropium/albuterol q4h prn Current Visit: Yes - Time Spent With Patient Total time spent is greater than 50% in coordination of care (as documented) at patient's floor/unit and/or counseling patient:
[2017-12-10] MEDS: MAGNESIUM SULFATE 1gm PREMIX 1 GM/100 ML BAG IV SCH ×2 (11:56→12:51)
[2017-12-10] MEDS ORDERED: [UNRECOGNIZED DRUG - CODE] TOP PRN (12:43)
[2017-12-10] MEDS: PredniSONE 20 MG TABLET PO SCH (12:51)
[2017-12-10] MEDS ORDERED: PNEUMOCOCCAL 13 VACCINE 0.5ml INJECTION IM ONE (16:13)
[2017-12-10] MEDS: CEFTRIAXONE 1 G in NS 100 ML IV SCH (20:05)
[2017-12-10] MEDS: MIRTAZAPINE 15 MG TABLET PO SCH (20:06)
[2017-12-10] MEDS: ATORVASTATIN 20 MG TABLET PO SCH (20:06)
[2017-12-10] MEDS: TERAZOSIN 2 MG CAPSULE PO SCH (20:06)
[2017-12-11] MEDS: HALOPERIDOL 5 MG/ML INJECTION IVP PRN ×3 (00:24→23:16)
[2017-12-11] MEDS: MORPHINE SULFATE 2mg INJ IVP PRN (03:28)
[2017-12-11] MEDS: OMEPRAZOLE 20 MG CAPSULE PO SCH ×2 (06:11→17:45)
[2017-12-11] MEDS: ALBUTEROL/IPRATROPIUM 2.5mg-0.5mg/3ml NEB AEROSOL SCH ×4 (07:58→19:43)
[2017-12-11] MEDS ORDERED: PredniSONE 20 MG TABLET PO SCH (08:25)
--- NOTE | 2017-12-11 09:10 | XRay Report ---
Indication: hypoxia PROCEDURE: XR chest 1V: Encounter: Initial Comparison: December 10, 2017 Findings: Increasing airspace disease in the left lower lobe with a small left effusion. Right lung remains grossly clear. No pneumothorax. Heart size and mediastinal contours are stable. Pulmonary vascularity is stable. Impression: Increasing airspace disease in the left lower lobe could represent atelectasis or pneumonia. .
--- NOTE | 2017-12-11 09:20 | Progress Note ---
- Date 12/11/17 Subjective: The patient was seen this morning in his room. He was up in a chair with his nurse. He required an increase in oxygen last night on BiPAP up to 80% FiO2 and this morning is on 6 L high flow nasal cannula. Yesterday he was only needing 3 L. His nurse reports that last night he was not tolerating BiPAP very well. This morning he is alert and appears to be in a good mood. He denies shortness of breath. He denies any pain. He denies nausea or vomiting. He has no complaints. Objective Vital signs: Temperature 97.5 F 12/11/17 07:01 Pulse Rate 66 12/11/17 07:01 Respiratory Rate 24 12/11/17 07:58 Blood Pressure 130/61 12/11/17 07:01 Pulse Oximetry 98 12/11/17 07:58 Height/Weight/BMI: Height 1.75 m Weight 105.8 kg Body Mass Index 35.1 Comments: Urine output since midnight has been 1.2 L GEN-alert, pleasant, no acute distress HEENT-sclera anicteric, oropharynx is moist NECK-supple CV-rate and rhythm CHEST-decreased breath sounds throughout, occasional coarse rhonchi ABD-soft, nontender with positive bowel sounds -[place] EXT-+1 lower extremity edema-patient states this is chronic NEURO-no focal deficits SKIN-warm and dry Results - Labs CBC & Chem 7: 12/11/17 04:13 12/11/17 04:13 Labs: Magnesium today is 1.8 after receiving IV magnesium yesterday for a magnesium level of 1.5. Phosphorus is 2.6. Albumin 3.2. Calcium 8.5. Microbiology Results: Microbiology 12/09/17 18:42 Peripheral/Iv Start Blood Culture - Preliminary No Growth After 1 Day 12/09/17 18:55 Peripheral/Iv Start Blood Culture - Preliminary No Growth After 1 Day - ABG Interpretation ABG results: 12/10/17 04:16 ABG pH 7.350 ABG pCO2 74 H* ABG pO2 81.5 ABG HCO3 40.7 H ABG Total CO2 43.0 H ABG O2 Saturation 94.6 L ABG Base Excess 13.1 H - Impressions Chest x-ray today shows increasing airspace disease in the left lower lobe which could represent atelectasis or pneumonia. 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 Dyslipidemia Cerebrovascular disease history of CVA in 2008, Type 2 diabetes Stage II chronic kidney disease GERD BPH Osteoarthritis Chronic back pain Depression Plan The patient had increased O2 requirements overnight, possibly secondary to atelectasis. We will encourage use of incentive spirometry and continue on Rocephin. Continue on breathing treatments. Due to poor sleep last night, will decrease prednisone to 30 mg. He does not have any wheezing on exam. Appreciate pulmonology consult. We'll keep in CCU for today and tonight to make sure her respiratory status improves. Increase activity as tolerated. B-12, folate, iron studies and Hemoccults are pending regarding anemia Regarding lower extremity edema and increasing hypoxia- will give 40 mg IV dose of Lasix 1 today and increase oral Lasix starting tomorrow to 40 mg daily Continue supplemental insulin and scheduled metformin for diabetes. Check hemoglobin A1c in a.m. - Physician Narrative Narrative: Date: 12/11/17 Time: 0915 Hospital Course Summary Disclaimer: The visit summary below is not to be considered part of the above Progress Note. Hospital Course: 12/09/17 Hospital admission to CCU Admit to CCU for Bipap, breathing tx, close observation. Stay expected to exceed 2 overnights given his respiratory failure and comorbidities. Respiratory panel + for rhinovirus. ABG's -significant hypercapnia. BiPAP ordered. Blood cultures have been collected. Start Rocephin 1 g IV every 24 hours. Continue home meds, including metformin for diabetes. Lactate and kidney function are normal, vital signs are stable. Accu-Cheks before meals and at bedtime. If stable, can DC after a day or 2. Hold off on IVF's for now given his heart failure. Does not appear dehydrated. Will follow his I&O's. Repeat labs in a.m. to follow blood counts, renal function and electrolytes. SCD's for DVT PPx Code status: Full code Care to return to Dr Amos on discharge 12/10/2017 Plan Respiratory status has improved after BiPAP overnight. He likely has chronic CO2 retention. Dr. Christy was consulted for acute on chronic hypoxic and hypercapnic respiratory failure. Continue BiPAP when necessary for now. Possible COPD with COPD exacerbation. He does have bilateral wheezing on exam. Will add oral steroids and continue breathing treatments. Increase activity as tolerated. Await iron panel, B-12 and folate. Monitor Accu-Cheks and give supplemental insulin as needed.
[2017-12-11] MEDS ORDERED: FUROSEMIDE 20 MG/2 ML INJECTION IVP ONE (09:25)
[2017-12-11] MEDS: GABAPENTIN 300 MG CAPSULE PO SCH ×3 (09:46→20:43)
[2017-12-11] MEDS: FINASTERIDE 5 MG TABLET PO SCH (09:47)
[2017-12-11] MEDS: CLOPIDOGREL 75 MG TABLET PO SCH (09:47)
[2017-12-11] MEDS: ASPIRIN *EC* 81 MG TABLET PO SCH (09:48)
[2017-12-11] MEDS: LISINOPRIL 10 MG TABLET PO SCH (09:48)
[2017-12-11] MEDS: FERROUS SULFATE 324 MG TABLET PO SCH (09:48)
[2017-12-11] MEDS: MULTI-VITAMIN PLAIN TABLET PO SCH (09:57)
[2017-12-11] MEDS: PredniSONE 20 MG TABLET PO SCH (16:19)
[2017-12-11] MEDS: FUROSEMIDE 20 MG TABLET PO SCH (16:19)
[2017-12-11] MEDS: MIRTAZAPINE 15 MG TABLET PO SCH (20:42)
[2017-12-11] MEDS: TERAZOSIN 2 MG CAPSULE PO SCH (20:43)
[2017-12-11] MEDS: ATORVASTATIN 20 MG TABLET PO SCH (20:43)
[2017-12-11] MEDS: CEFTRIAXONE 1 G in NS 100 ML IV SCH (21:04)
[2017-12-12] MEDS: HALOPERIDOL 5 MG/ML INJECTION IVP PRN ×2 (02:45→21:36)
[2017-12-12] MEDS: OMEPRAZOLE 20 MG CAPSULE PO SCH ×2 (05:59→16:38)
[2017-12-12] MEDS: ALBUTEROL/IPRATROPIUM 2.5mg-0.5mg/3ml NEB AEROSOL SCH ×4 (06:54→20:37)
[2017-12-12] MEDS: CLOPIDOGREL 75 MG TABLET PO SCH (08:29)
[2017-12-12] MEDS: ASPIRIN *EC* 81 MG TABLET PO SCH (08:29)
[2017-12-12] MEDS: LISINOPRIL 10 MG TABLET PO SCH (08:29)
[2017-12-12] MEDS: GABAPENTIN 300 MG CAPSULE PO SCH ×3 (08:29→21:20)
[2017-12-12] MEDS: FUROSEMIDE 20 MG TABLET PO SCH (08:29)
[2017-12-12] MEDS: FINASTERIDE 5 MG TABLET PO SCH (08:29)
[2017-12-12] MEDS: FERROUS SULFATE 324 MG TABLET PO SCH (08:29)
[2017-12-12] MEDS: MULTI-VITAMIN PLAIN TABLET PO SCH (08:30)
--- NOTE | 2017-12-12 08:44 | Pulmonology Progress Note ---
Subjective Principal diagnosis: COPD exacerbation Interval history: Pt up to chair, states no SOB, + cough with minimal sputum. Somewhat confused this am. Exam Vital signs: Temperature 98.1 F 12/12/17 07:56 Pulse Rate 79 12/12/17 07:40 Respiratory Rate 20 12/12/17 07:40 Blood Pressure 137/65 12/12/17 07:40 Pulse Oximetry 94 12/12/17 07:40 Inpatient Medications: Generic Name Dose Route Start Last Admin Trade Name Freq PRN Reason Stop Dose Admin Albuterol/Ipratropium 3 ml 12/10/17 07:00 12/12/17 06:54 Duoneb AEROSOL 3 ml RTQID ELIZABETH Administration Aspirin 81 mg 12/10/17 09:00 12/12/17 08:29 Ecotrin PO 81 mg DAILY ELIZABETH Administration Atorvastatin Calcium 20 mg 12/09/17 21:00 12/11/17 20:43 Lipitor PO 20 mg HS ELIZABETH Administration Clopidogrel Bisulfate 75 mg 12/10/17 09:00 12/12/17 08:29 Plavix PO 75 mg DAILY ELIZABETH Administration Ferrous Sulfate 324 mg 12/10/17 08:00 12/12/17 08:29 Feosol PO 324 mg WB ELIZABETH Administration Finasteride 5 mg 12/10/17 09:00 12/12/17 08:29 Proscar PO 5 mg DAILY ELIZABETH Administration Furosemide 40 mg 12/11/17 09:26 12/12/17 08:29 Lasix 20 Mg Tab PO 40 mg DAILY ELIZABETH Administration Gabapentin 300 mg 12/09/17 21:00 12/12/17 08:29 Neurontin PO 300 mg TID ELIZABETH Administration Haloperidol Lactate 2 mg 12/10/17 01:06 12/12/17 02:45 Haldol IVP 2 mg Q2HR PRN Administration Ceftriaxone Sodium 1 g/ Sodium 100 mls @ 200 mls/hr 12/09/17 20:30 12/11/17 21:34 Chloride IV Infused Q24H ELIZABETH Infusion Lisinopril 10 mg 12/10/17 09:00 12/12/17 08:29 Prinivil PO 10 mg DAILY ELIZABETH Administration Metoprolol Succinate 50 mg 12/10/17 09:00 12/12/17 08:30 Toprol Xl PO 50 mg DAILY ELIZABETH Administration Mirtazapine 15 mg 12/09/17 21:00 12/11/17 20:42 Remeron PO 15 mg HS ELIZABETH Administration Morphine Sulfate 2 mg 12/10/17 01:07 12/11/17 03:28 Morphine Sulfate Inj IVP 2 mg Q3-4HR PRN Administration Pain Multivitamins 1 tab 12/10/17 09:00 12/12/17 08:30 Theragran PO 1 tab DAILY ELIZABETH Administration Nitroglycerin 0.4 mg 12/09/17 20:23 Nitrostat SL Q5M PRN CP Omeprazole 20 mg 12/09/17 21:00 12/12/17 05:59 Prilosec PO 20 mg ACBID ELIZABETH Administration Prednisone 30 mg 12/11/17 08:25 12/12/17 08:30 Deltasone 20 Mg PO 30 mg WB ELIZABETH Administration Sodium Chloride 10 - 80 ml 12/09/17 16:25 12/10/17 14:58 Iv Flush IVF 10 ml PRN PRN Administration Flushing Terazosin HCl 2 mg 12/09/17 21:00 12/11/17 20:43 Hytrin PO 2 mg HS ELIZABETH Administration Trolamine Salicylate 1 applic 12/10/17 13:38 12/12/17 08:31 Aspercreme TOP 1 applic PRN PRN Administration Discontinued Medications Generic Name Dose Route Start Last Admin Trade Name Freq PRN Reason Stop Dose Admin Albuterol/Ipratropium 3 ml 12/09/17 18:10 12/09/17 18:24 Duoneb AEROSOL 12/09/17 18:11 3 ml O ONE Administration Furosemide 40 mg 12/09/17 17:47 12/09/17 17:51 Lasix 40 Mg/4 Ml IVP 12/09/17 17:48 40 mg O ONE Administration Furosemide 20 mg 12/10/17 09:00 12/11/17 16:19 Lasix 20 Mg Tab PO Not Given DAILY ELIZABETH Furosemide 40 mg 12/11/17 09:25 12/11/17 11:00 Lasix 20 Mg/2 Ml IVP 12/11/17 09:26 Not Given ONCE ONE Magnesium Sulfate/Dextrose 1 gm in 100 mls @ 100 mls/hr 12/10/17 11:00 13:51 Mag Sulf 1gm Premix IV 12/10/17 12:59 Infused Q1H ELIZABETH Infusion Metformin HCl 500 mg 12/10/17 08:00 Glucophage PO TIDWM ELIZABETH Non-Formulary Medication 1 each 12/10/17 12:43 Non-Formulary Medication TOP PRN PRN Pneumococcal 7-Valent Conj Vacc 0.5 ml 12/10/17 16:13 12/10/17 17:38 Prevnar 13 IM 12/10/17 16:14 0.5 ml .ONCE ONE Administration Prednisone 40 mg 12/10/17 09:14 12/11/17 16:19 Deltasone 20 Mg PO Not Given WB [facility] - Constitutional no acute distress, well nourished, average body habitus - Routine HEENT Exam Head: Present: normocephalic, atraumatic Eye: Present: EOMI ENT: Present: mucous membranes moist - Routine Neck Exam Present: supple, full ROM, trachea midline - Routine Respiratory Exam Present: decreased breath sounds, crackles. Absent: accessory muscle use, patient mechanically ventilated Comments: crackles to bases - Routine Cardiovascular Exam Present: RRR, S1, S2, no murmur - Routine Abdominal Exam Present: soft, normoactive bowel sounds - Routine Extremities Exam Present: no edema, non tender, full ROM. Absent: cyanosis, clubbing - Routine Back/Spine/Pelvis Exam Back/Spine: Present: full ROM - Routine Skin Exam Present: intact, dry - Routine Neurological Exam Present: alert, CN II-XII intact - Routine Psychiatric Exam Present: normal affect, cooperative Results - Laboratory Findings Laboratory: Laboratory Results - last 48 hr 12/10/17 12/10/17 12/10/17 04:40 04:40 10:15 WBC RBC Hgb Hct MCV MCH MCHC RDW Std Deviation Plt Count MPV Immature Gran % (Auto) Neut % (Auto) Lymph % (Auto) [place] % (Auto) Eos % (Auto) Baso % (Auto) Neut # (Auto) Lymph # (Auto) [place] # (Auto) Eos # (Auto) Baso # (Auto) Abs Immat Gran (auto) Neutrophils % (Manual) Band Neutrophils % Lymphocytes % (Manual) Monocytes % (Manual) Eosinophils % (Manual) Neutrophils # (Manual) Band Neutrophils # Lymphocytes # (Manual) Monocytes # (Manual) Eosinophils # (Manual) RBC Morph Comment Turbidity Sodium Potassium Chloride Carbon Dioxide Anion Gap BUN Creatinine GFR Calculation BUN/Creatinine Ratio Glucose Glucometer 161 Hemoglobin A1c Calculated Osmolality Calcium Phosphorus Magnesium 1.5 L Iron 24 L TIBC 204 L % Saturation 12 L Icterus Index Albumin Vitamin B12 883 Folate > 20.0 H Specimen Hemolysis 12/10/17 12/10/17 12/11/17 16:53 20:56 04:13 WBC 4.7 RBC 2.66 L Hgb 8.6 L Hct 28.3 L MCV 106.4 H MCH 32.3 MCHC 30.4 L RDW Std Deviation 44.5 Plt Count 116 L MPV 11.3 Immature Gran % (Auto) 0.2 Neut % (Auto) 77.3 H Lymph % (Auto) 13.2 L [place] % (Auto) 9.1 H Eos % (Auto) 0.2 Baso % (Auto) 0.0 Neut # (Auto) 3.6 Lymph # (Auto) 0.6 L [place] # (Auto) 0.4 Eos # (Auto) 0.0 Baso # (Auto) 0.0 Abs Immat Gran (auto) 0.01 Neutrophils % (Manual) Band Neutrophils % Lymphocytes % (Manual) Monocytes % (Manual) Eosinophils % (Manual) Neutrophils # (Manual) Band Neutrophils # Lymphocytes # (Manual) Monocytes # (Manual) Eosinophils # (Manual) RBC Morph Comment Turbidity Sodium Potassium Chloride Carbon Dioxide Anion Gap BUN Creatinine GFR Calculation BUN/Creatinine Ratio Glucose Glucometer 219 266 Hemoglobin A1c Calculated Osmolality Calcium Phosphorus Magnesium Iron TIBC % Saturation Icterus Index Albumin Vitamin B12 Folate Specimen Hemolysis 12/11/17 12/11/17 12/11/17 04:13 04:13 06:14 WBC RBC Hgb Hct MCV MCH MCHC RDW Std Deviation Plt Count MPV Immature Gran % (Auto) Neut % (Auto) Lymph % (Auto) [place] % (Auto) Eos % (Auto) Baso % (Auto) Neut # (Auto) Lymph # (Auto) [place] # (Auto) Eos # (Auto) Baso # (Auto) Abs Immat Gran (auto) Neutrophils % (Manual) Band Neutrophils % Lymphocytes % (Manual) Monocytes % (Manual) Eosinophils % (Manual) Neutrophils # (Manual) Band Neutrophils # Lymphocytes # (Manual) Monocytes # (Manual) Eosinophils # (Manual) RBC Morph Comment Turbidity < 20 Sodium 140 Potassium 4.6 Chloride 93 L Carbon Dioxide 39 H Anion Gap 8 BUN 26.0 H Creatinine 1.2 GFR Calculation 57 BUN/Creatinine Ratio 22 Glucose 141 H Glucometer 134 Hemoglobin A1c Calculated Osmolality 276 Calcium 8.5 Phosphorus 2.6 Magnesium 1.8 D Iron TIBC % Saturation Icterus Index < 2 Albumin 3.2 L Vitamin B12 Folate Specimen Hemolysis < 15 12/11/17 12/11/17 12/12/17 11:53 21:08 04:42 WBC RBC Hgb Hct MCV MCH MCHC RDW Std Deviation Plt Count MPV Immature Gran % (Auto) Neut % (Auto) Lymph % (Auto) [place] % (Auto) Eos % (Auto) Baso % (Auto) Neut # (Auto) Lymph # (Auto) [place] # (Auto) Eos # (Auto) Baso # (Auto) Abs Immat Gran (auto) Neutrophils % (Manual) Band Neutrophils % Lymphocytes % (Manual) Monocytes % (Manual) Eosinophils % (Manual) Neutrophils # (Manual) Band Neutrophils # Lymphocytes # (Manual) Monocytes # (Manual) Eosinophils # (Manual) RBC Morph Comment Turbidity < 20 Sodium 143 Potassium 4.6 Chloride 96 L Carbon Dioxide 40 H Anion Gap 7 BUN 25.0 H Creatinine 1.1 GFR Calculation 63 BUN/Creatinine Ratio 23 Glucose 111 H Glucometer 186 210 Hemoglobin A1c 5.8 H Calculated Osmolality 280 Calcium 8.9 Phosphorus Magnesium Iron TIBC % Saturation Icterus Index < 2 Albumin Vitamin B12 Folate Specimen Hemolysis < 15 12/12/17 04:43 WBC 5.4 RBC 2.81 L Hgb 9.1 L Hct 30.0 L MCV 106.8 H MCH 32.4 MCHC 30.3 L RDW Std Deviation 47.5 Plt Count 134 MPV 11.6 Immature Gran % (Auto) Neut % (Auto) Lymph % (Auto) [place] % (Auto) Eos % (Auto) Baso % (Auto) Neut # (Auto) Lymph # (Auto) [place] # (Auto) Eos # (Auto) Baso # (Auto) Abs Immat Gran (auto) Neutrophils % (Manual) 73.0 H Band Neutrophils % 1.0 Lymphocytes % (Manual) 14.0 L Monocytes % (Manual) 11.0 H Eosinophils % (Manual) 1.0 Neutrophils # (Manual) 3.9 Band Neutrophils # 0.1 Lymphocytes # (Manual) 0.8 L Monocytes # (Manual) 0.6 Eosinophils # (Manual) 0.1 RBC Morph Comment Normal Turbidity Sodium Potassium Chloride Carbon Dioxide Anion Gap BUN Creatinine GFR Calculation BUN/Creatinine Ratio Glucose Glucometer Hemoglobin A1c Calculated Osmolality Calcium Phosphorus Magnesium Iron TIBC % Saturation Icterus Index Albumin Vitamin B12 Folate Specimen Hemolysis Assessment and Plan - Assessment and Plan Acute on Chronic Hypoxic Hypercapnic respiratory Failure Likely COPD with exacerbation - 2L O2 at home, no meds or prior workup RSV 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 Used bipap f16, 15/5, 35% last noc, cont qHs as sandy. ABG 7.26/94/64 > 7.35/74/80, likely requires a home vent to mask if he is willing to use at home. On BT's with A/A QID and prednisone 30mg. + RSV, on Rocephin for basilar infiltrates, no sputum cx, BC NTD. CXR yesterday with increasing LLL atelectasis, cont acapella and IS. Would likely benefit from OP BT's and OP PFT for COPD severity. Has a Hx of Pulmonary HTN, VHD, on diuresis per primary. Follow CXR - Time Spent With Patient Total time spent is greater than 50% in coordination of care (as documented) at patient's floor/unit and/or counseling patient: less than 15 minutes
--- NOTE | 2017-12-12 09:25 | Progress Note ---
- Date 12/12/17 Subjective: The patient was seen this morning in his room. He is sitting up in a chair. He denies shortness of breath. He states he has an occasional productive cough. He has not had a bowel movement since admission. He states his appetite is good. He is urinating okay. He had confusion last night and required Haldol and morphine. Objective Vital signs: Temperature 98.1 F 12/12/17 07:56 Pulse Rate 79 12/12/17 07:40 Respiratory Rate 20 12/12/17 07:40 Blood Pressure 137/65 12/12/17 07:40 Pulse Oximetry 94 12/12/17 07:40 Height/Weight/BMI: Height 1.75 m Weight 105.8 kg Body Mass Index 35.1 Comments: Afebrile, blood pressure 150/91, O2 sat 94% on 5 L, heart rate 87 GEN-alert, no acute distress, oriented to [facility], November HEENT-clear and anicteric, oropharynx is moist NECK-supple CV-regular rate and rhythm CHEST-her to auscultation bilaterally ABD-soft, nontender with positive bowel sounds -no [place] EXT-trace pedal edema NEURO-no focal deficits SKIN-warm and dry Results - Labs CBC & Chem 7: 12/12/17 04:43 12/12/17 04:42 Labs: A1c is 5.8 B 12 883 Folate greater than 20 Iron sat 12%, TIBC 204, iron 24 MCV 106 Microbiology Results: Microbiology 12/09/17 18:42 Peripheral/Iv Start Blood Culture - Preliminary No Growth After 2 Days 12/09/17 18:55 Peripheral/Iv Start Blood Culture - Preliminary No Growth After 2 Days Assessment and Plan (1) Acute respiratory failure with hypoxia and hypercapnia Current visit: Yes Status: Acute Assessment and Plan: Assessment Acute hypoxic, hypercapnic respiratory failure secondary to rhinovirus- chronically on 2 L of oxygen per nasal cannula at home Probable COPD -will need workup as an outpatient Generalized weakness secondary to viral illness Hypernatremia - POA-resolved Macrocytic Anemia - B-12 and folate are normal. 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 Dyslipidemia Cerebrovascular disease history of CVA in 2009, Type 2 diabetes-well controlled with A1c of 5.8 Stage II chronic kidney disease GERD BPH Osteoarthritis Chronic back pain Depression Encephalopathy/sundowning at night, currently resolved Plan Overall, the patient is doing better. Will transfer to the medical floor close to the nursing unit. Decrease prednisone to 20 mg a day Repeat chest x-ray in a.m. Add to relax and Senokot for constipation Repeat CBC and basic metabolic profile tomorrow Hemoccult is pending regarding anemia Continue on telemetry and continuous oximetry. Continue BiPAP at night as tolerated. Titrate down oxygen as needed. Increase activity as tolerated. DVT Prophylaxis: SCD's GI Prophylaxis: other Resuscitation Status: Full Code - Time spent with patient Time with patient PN: 35 minutes - Physician Narrative Narrative: Date: 12/12/17 Time: 917 Hospital Course Summary Disclaimer: The visit summary below is not to be considered part of the above Progress Note. Hospital Course: 12/09/17 Hospital admission to CCU Admit to CCU for Bipap, breathing tx, close observation. Stay expected to exceed 2 overnights given his respiratory failure and comorbidities. Respiratory panel + for rhinovirus. ABG's -significant hypercapnia. BiPAP ordered. Blood cultures have been collected. Start Rocephin 1 g IV every 24 hours. Continue home meds, including metformin for diabetes. Lactate and kidney function are normal, vital signs are stable. Accu-Cheks before meals and at bedtime. If stable, can DC after a day or 2. Hold off on IVF's for now given his heart failure. Does not appear dehydrated. Will follow his I&O's. Repeat labs in a.m. to follow blood counts, renal function and electrolytes. SCD's for DVT PPx Code status: Full code Care to return to Dr Amos on discharge 12/10/2017 Plan Respiratory status has improved after BiPAP overnight. He likely has chronic CO2 retention. Dr. Christy was consulted for acute on chronic hypoxic and hypercapnic respiratory failure. Continue BiPAP when necessary for now. Possible COPD with COPD exacerbation. He does have bilateral wheezing on exam. Will add oral steroids and continue breathing treatments. Increase activity as tolerated. Await iron panel, B-12 and folate. Monitor Accu-Cheks and give supplemental insulin as needed.
[2017-12-12] MEDS: POLYETHYL GLYCOL 3350 17gm PACKET PO SCH ×2 (09:32→21:20)
[2017-12-12] MEDS: SENNA + DOCUSATE TABLET PO SCH (09:32)
[2017-12-12] MEDS: CEFTRIAXONE 1 G in NS 100 ML IV SCH (21:19)
[2017-12-12] MEDS: MIRTAZAPINE 15 MG TABLET PO SCH (21:20)
[2017-12-12] MEDS: TERAZOSIN 2 MG CAPSULE PO SCH (21:20)
[2017-12-12] MEDS: ATORVASTATIN 20 MG TABLET PO SCH (21:28)
[2017-12-13] MEDS: HALOPERIDOL 5 MG/ML INJECTION IVP PRN (03:27)
[2017-12-13] MEDS: SALINE FLUSH 10ml SYRINGE IVF PRN (03:28)
[2017-12-13] MEDS: MORPHINE SULFATE 2mg INJ IVP PRN (04:35)
[2017-12-13] MEDS: OMEPRAZOLE 20 MG CAPSULE PO SCH ×2 (06:21→17:42)
[2017-12-13] MEDS: ALBUTEROL/IPRATROPIUM 2.5mg-0.5mg/3ml NEB AEROSOL SCH ×4 (07:10→20:05)
[2017-12-13] MEDS: FUROSEMIDE 20 MG TABLET PO SCH (10:09)
[2017-12-13] MEDS: POLYETHYL GLYCOL 3350 17gm PACKET PO SCH ×2 (10:09→21:04)
[2017-12-13] MEDS: MULTI-VITAMIN PLAIN TABLET PO SCH (10:10)
[2017-12-13] MEDS: GABAPENTIN 300 MG CAPSULE PO SCH ×3 (10:10→21:04)
[2017-12-13] MEDS: ASPIRIN *EC* 81 MG TABLET PO SCH (10:10)
[2017-12-13] MEDS: SENNA + DOCUSATE TABLET PO SCH (10:10)
[2017-12-13] MEDS: LISINOPRIL 10 MG TABLET PO SCH (10:10)
[2017-12-13] MEDS: CLOPIDOGREL 75 MG TABLET PO SCH (10:10)
[2017-12-13] MEDS: PredniSONE 20 MG TABLET PO SCH (10:11)
[2017-12-13] MEDS: FINASTERIDE 5 MG TABLET PO SCH (10:11)
[2017-12-13] MEDS: FERROUS SULFATE 324 MG TABLET PO SCH (10:11)
--- NOTE | 2017-12-13 13:11 | Progress Note ---
- Date 12/13/17 Subjective: Resting comfortably this morning, on 02, wakes up easily but wants to go back to sleep. Feels he doesn't get sleep overnight and has to "catch up". Breathing still difficult with any exertion but comfortable at rest. No fevers. Still wheezing much of the time. Objective Vital signs: Temperature 97.7 F 12/13/17 08:00 Pulse Rate 82 12/13/17 11:43 Respiratory Rate 18 12/13/17 11:43 Blood Pressure 142/69 H 12/13/17 11:43 Pulse Oximetry 92 12/13/17 11:43 Height/Weight/BMI: Height 1.75 m Weight 104 kg Body Mass Index 35.1 - Constitutional Present: no acute distress, well nourished, well developed - Routine HEENT Exam Head: Present: normocephalic, atraumatic Eye: Present: PERRL. Absent: conjunctival icterus ENT: Present: mucous membranes moist, oropharynx clear - Routine Respiratory Exam Present: prolonged expiratory phase, wheezes (scattered ), diminished air movement. Absent: rhonchi - Routine Cardiovascular Exam Present: RRR, murmur (3/6 JUNE) - Routine Abdominal Exam Present: soft, non tender, distended - Routine Extremities Exam Present: edema (trace BLE) - Routine Skin Exam Present: dry, warm. Absent: rash - Routine Neurological Exam Present: alert, hearing grossly intact, normal speech - Routine Psychiatric Exam Present: normal affect Results - Labs CBC & Chem 7: 12/12/17 04:43 12/12/17 04:42 Microbiology Results: Microbiology 12/09/17 18:42 Peripheral/Iv Start Blood Culture - Preliminary No Growth After 3 Days 12/09/17 18:55 Peripheral/Iv Start Blood Culture - Preliminary No Growth After 3 Days Assessment and Plan Assessment and Plan: Assessment Acute hypoxic, hypercapnic respiratory failure secondary to rhinovirus + COPD exacerbation-chronically on 2 L of oxygen per nasal cannula at home Probable COPD -will need workup as an outpatient but clinically has the disease process Generalized weakness secondary to viral illness Hypernatremia - POA-resolved Macrocytic Anemia - B-12 and folate are normal. Iron sat and total iron are low. 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 Dyslipidemia Cerebrovascular disease history of CVA in 2009, Type 2 diabetes-well controlled with A1c of 5.8 Stage II chronic kidney disease, stable and euvolemic Chronic metabolic alkalosis, presumably compensatory for chronic resp acidosis 2 /2 COPD GERD BPH Osteoarthritis Chronic back pain Depression Encephalopathy/sundowning at night, waxes and wanes. Plan Overall, the patient is doing better. Continue pred at 20 mg daily. Monitor and titrate 02 as able. Continue current laxatives. Encourage increased activity as tolerated. Repeat CBC and metabolic panel tomorrow for surveillance. Monitor blood counts; Fe replacement po. Continue on telemetry and continuous oximetry. Continue BiPAP at night as tolerated. Titrate down oxygen as needed. Improving but likely needs continued inpatient monitoring of resp status. Will need home equipment (mask to vent?) arranged prior to discharge as well. Discussed with RN and case management. DVT Prophylaxis: SCD's Resuscitation Status: Full Code - Physician Narrative Narrative: Date: 12/13/17 Time: 1305 Hospital Course Summary Disclaimer: The visit summary below is not to be considered part of the above Progress Note. Hospital Course: 12/09/17 Hospital admission to CCU Admit to CCU for Bipap, breathing tx, close observation. Stay expected to exceed 2 overnights given his respiratory failure and comorbidities. Respiratory panel + for rhinovirus. ABG's -significant hypercapnia. BiPAP ordered. Blood cultures have been collected. Start Rocephin 1 g IV every 24 hours. Continue home meds, including metformin for diabetes. Lactate and kidney function are normal, vital signs are stable. Accu-Cheks before meals and at bedtime. If stable, can DC after a day or 2. Hold off on IVF's for now given his heart failure. Does not appear dehydrated. Will follow his I&O's. Repeat labs in a.m. to follow blood counts, renal function and electrolytes. SCD's for DVT PPx Code status: Full code Care to return to Dr Amos on discharge 12/10/2017 Plan Respiratory status has improved after BiPAP overnight. He likely has chronic CO2 retention. Dr. Christy was consulted for acute on chronic hypoxic and hypercapnic respiratory failure. Continue BiPAP when necessary for now. Possible COPD with COPD exacerbation. He does have bilateral wheezing on exam. Will add oral steroids and continue breathing treatments. Increase activity as tolerated. Await iron panel, B-12 and folate. Monitor Accu-Cheks and give supplemental insulin as needed.
[2017-12-13] MEDS: CEFTRIAXONE 1 G in NS 100 ML IV SCH (21:01)
[2017-12-13] MEDS: ATORVASTATIN 20 MG TABLET PO SCH (21:04)
[2017-12-13] MEDS: MIRTAZAPINE 15 MG TABLET PO SCH (21:04)
[2017-12-13] MEDS: TERAZOSIN 2 MG CAPSULE PO SCH (21:04)
[2017-12-13] MEDS ORDERED: ACETAMINOPHEN 325 MG TABLET PO PRN (22:42)
[2017-12-14] MEDS: OMEPRAZOLE 20 MG CAPSULE PO SCH ×2 (06:39→17:52)
[2017-12-14] MEDS: ALBUTEROL/IPRATROPIUM 2.5mg-0.5mg/3ml NEB AEROSOL SCH ×4 (07:58→19:31)
[2017-12-14] MEDS ORDERED: POLYETHYL GLYCOL 3350 17gm PACKET PO PRN (08:36)
[2017-12-14] MEDS: GABAPENTIN 300 MG CAPSULE PO SCH ×3 (09:10→20:30)
[2017-12-14] MEDS: CLOPIDOGREL 75 MG TABLET PO SCH (09:11)
[2017-12-14] MEDS: FUROSEMIDE 20 MG TABLET PO SCH (09:11)
[2017-12-14] MEDS: LISINOPRIL 10 MG TABLET PO SCH (09:11)
[2017-12-14] MEDS: FERROUS SULFATE 324 MG TABLET PO SCH (09:11)
[2017-12-14] MEDS: FINASTERIDE 5 MG TABLET PO SCH (09:11)
[2017-12-14] MEDS: SENNA + DOCUSATE TABLET PO SCH (09:11)
[2017-12-14] MEDS: MULTI-VITAMIN PLAIN TABLET PO SCH (09:11)
[2017-12-14] MEDS: ASPIRIN *EC* 81 MG TABLET PO SCH (09:11)
[2017-12-14] MEDS: PredniSONE 20 MG TABLET PO SCH (09:12)
--- NOTE | 2017-12-14 11:37 | Progress Note ---
- Date 12/14/17 Subjective: Feeling well overall, up to chair this morning and more alert. Weaning down 02 slowly, off of high flow as of this morning but still requiring more 02 than baseline. Feels his breathing is comfortable at rest but very short of air with any exertion. No fevers. Having several bowel movements yesterday. Appetite good this morning. Objective Vital signs: Temperature 98.3 F 12/14/17 04:00 Pulse Rate 87 12/14/17 07:35 Respiratory Rate 16 12/14/17 10:46 Blood Pressure 155/72 H 12/14/17 07:35 Pulse Oximetry 92 12/14/17 10:46 Height/Weight/BMI: Height 1.75 m Weight 106.8 kg Body Mass Index 35.1 - Constitutional Present: no acute distress, well nourished, well developed, cooperative - Routine HEENT Exam Head: Present: normocephalic, atraumatic Eye: Present: PERRL. Absent: conjunctival icterus ENT: Present: mucous membranes moist, oropharynx clear - Routine Respiratory Exam Present: decreased breath sounds, prolonged expiratory phase, wheezes ( scattered ). Absent: rales, rhonchi - Routine Cardiovascular Exam Present: RRR. Absent: rubs - Routine Abdominal Exam Present: soft, non distended, non tender - Routine Extremities Exam Present: edema (trace BLE), pulses intact - Routine Skin Exam Present: dry, warm. Absent: rash - Routine Neurological Exam Present: alert, oriented X3, normal speech - Routine Psychiatric Exam Present: normal affect Results - Labs CBC & Chem 7: 12/14/17 05:13 12/14/17 05:13 Microbiology Results: Microbiology 12/09/17 18:55 Peripheral/Iv Start Blood Culture - Preliminary No Growth After 4 Days 12/09/17 18:42 Peripheral/Iv Start Blood Culture - Preliminary No Growth After 4 Days Assessment and Plan Assessment and Plan: Assessment Acute hypoxic, hypercapnic respiratory failure secondary to rhinovirus + COPD exacerbation-chronically on 2 L of oxygen per nasal cannula at home Probable COPD -will need workup as an outpatient but clinically has the disease process Generalized weakness secondary to viral illness Hypernatremia - POA-resolved Macrocytic Anemia - B-12 and folate are normal. Iron sat and total iron are low. 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 Dyslipidemia Cerebrovascular disease history of CVA in 2008, Type 2 diabetes-well controlled with A1c of 5.8 Stage II chronic kidney disease, stable and euvolemic Chronic metabolic alkalosis, presumably compensatory for chronic resp acidosis 2 /2 COPD GERD BPH Osteoarthritis Chronic back pain Depression Encephalopathy/sundowning at night, waxes and wanes. Plan Continued slow improvement; continue pred as ordered, daily rocephin, breathing treatments and wean 02 as tolerated today. Hold further IV medications (morphine, haldol). Made miralax prn; continue daily scheduled senna and monitor bowels. Encourage increased activity as tolerated. Repeat CBC and metabolic panel, Mg tomorrow for surveillance. Continue current diuretic dosing but monitor weights closely; 2.8 kg up from admission currently, may need higher dose or BID dosing. Hold further telemetry as he has been very stable and is not on IV diuretics. Will keep the continuous oximetry. Continue BiPAP at night as tolerated (not wearing much of the time); will discuss with pulm tomorrow re: plans for home therapies at discharge. Improving but needs continued inpatient monitoring of resp status, volume status. Will need home equipment (mask to vent?) arranged prior to discharge as well. Consults pending for skilled care versus IRU. Discussed with RN. DVT Prophylaxis: SCD's Resuscitation Status: Full Code - Physician Narrative Narrative: Date: 12/14/17 Time: 1131 Hospital Course Summary Disclaimer: The visit summary below is not to be considered part of the above Progress Note. Hospital Course: 12/09/17 Hospital admission to CCU Admit to CCU for Bipap, breathing tx, close observation. Stay expected to exceed 2 overnights given his respiratory failure and comorbidities. Respiratory panel + for rhinovirus. ABG's -significant hypercapnia. BiPAP ordered. Blood cultures have been collected. Start Rocephin 1 g IV every 24 hours. Continue home meds, including metformin for diabetes. Lactate and kidney function are normal, vital signs are stable. Accu-Cheks before meals and at bedtime. If stable, can DC after a day or 2. Hold off on IVF's for now given his heart failure. Does not appear dehydrated. Will follow his I&O's. Repeat labs in a.m. to follow blood counts, renal function and electrolytes. SCD's for DVT PPx Code status: Full code Care to return to Dr Amos on discharge 12/10/2017 Plan Respiratory status has improved after BiPAP overnight. He likely has chronic CO2 retention. Dr. Christy was consulted for acute on chronic hypoxic and hypercapnic respiratory failure. Continue BiPAP when necessary for now. Possible COPD with COPD exacerbation. He does have bilateral wheezing on exam. Will add oral steroids and continue breathing treatments. Increase activity as tolerated. Await iron panel, B-12 and folate. Monitor Accu-Cheks and give supplemental insulin as needed. 12/14/17 Continued slow improvement; continue pred as ordered, daily rocephin, breathing treatments and wean 02 as tolerated today. Hold further IV medications (morphine, haldol). Made miralax prn; continue daily scheduled senna and monitor bowels. Encourage increased activity as tolerated. Repeat CBC and metabolic panel, Mg tomorrow for surveillance. Continue current diuretic dosing but monitor weights closely; 2.8 kg up from admission currently, may need higher dose or BID dosing. Hold further telemetry as he has been very stable and is not on IV diuretics. Will keep the continuous oximetry. Continue BiPAP at night as tolerated (not wearing much of the time); will discuss with pulm tomorrow re: plans for home therapies at discharge.
[2017-12-14] MEDS: ATORVASTATIN 20 MG TABLET PO SCH (20:30)
[2017-12-14] MEDS: TERAZOSIN 2 MG CAPSULE PO SCH (20:30)
[2017-12-14] MEDS: MIRTAZAPINE 15 MG TABLET PO SCH (20:30)
[2017-12-14] MEDS: SALINE FLUSH 10ml SYRINGE IVF PRN (20:30)
[2017-12-14] MEDS: CEFTRIAXONE 1 G in NS 100 ML IV SCH (20:43)
[2017-12-15] MEDS: OMEPRAZOLE 20 MG CAPSULE PO SCH (06:46)
[2017-12-15] MEDS: CLOPIDOGREL 75 MG TABLET PO SCH (08:16)
[2017-12-15] MEDS: FERROUS SULFATE 324 MG TABLET PO SCH (08:16)
[2017-12-15] MEDS: MULTI-VITAMIN PLAIN TABLET PO SCH (08:16)
[2017-12-15] MEDS: SENNA + DOCUSATE TABLET PO SCH (08:17)
[2017-12-15] MEDS: LISINOPRIL 10 MG TABLET PO SCH (08:17)
[2017-12-15] MEDS: PredniSONE 20 MG TABLET PO SCH (08:17)
[2017-12-15] MEDS: FINASTERIDE 5 MG TABLET PO SCH (08:17)
[2017-12-15] MEDS: GABAPENTIN 300 MG CAPSULE PO SCH ×2 (08:17→14:47)
[2017-12-15] MEDS: ASPIRIN *EC* 81 MG TABLET PO SCH (08:17)
[2017-12-15] MEDS: FUROSEMIDE 20 MG TABLET PO SCH (08:18)
[2017-12-15] MEDS: ALBUTEROL/IPRATROPIUM 2.5mg-0.5mg/3ml NEB AEROSOL SCH ×3 (09:20→15:20)
--- NOTE | 2017-12-15 09:21 | XRay Report ---
Indication: infiltrates PROCEDURE: XR chest 2V: Encounter: Initial Comparison: None. Findings: There is mild prominence of the cardiac silhouette. No definite pulmonary vascular congestion or interstitial pulmonary edema. There is some discoid atelectasis in the right lung base, similar to prior exams. No definite lobar consolidation or pleural effusion. Impression: Interval clearing of the left basilar opacity with a small amount of residual right basilar atelectasis and/or scarring. .
--- NOTE | 2017-12-15 09:31 | Pulmonology Progress Note ---
Subjective Principal diagnosis: COPD exacerbation Interval history: Pt up to chair, states no SOB, minimal cough and sputum. States he didn't use the bipap and wont ever use it again. Exam Vital signs: Temperature 97.1 F 12/15/17 07:59 Pulse Rate 77 12/15/17 07:59 Respiratory Rate 22 12/15/17 09:15 Blood Pressure 156/69 H 12/15/17 07:59 Pulse Oximetry 95 12/15/17 09:15 Inpatient Medications: Generic Name Dose Route Start Last Admin Trade Name Freq PRN Reason Stop Dose Admin Acetaminophen 650 mg 12/13/17 22:42 12/13/17 22:46 Tylenol PO 650 mg Q6H PRN Administration Pain Albuterol/Ipratropium 3 ml 12/10/17 07:00 12/15/17 09:20 Duoneb AEROSOL 3 ml RTQID ELIZABETH Administration Aspirin 81 mg 12/10/17 09:00 12/15/17 08:17 Ecotrin PO 81 mg DAILY ELIZABETH Administration Atorvastatin Calcium 20 mg 12/09/17 21:00 12/14/17 20:30 Lipitor PO 20 mg HS ELIZABETH Administration Clopidogrel Bisulfate 75 mg 12/10/17 09:00 12/15/17 08:16 Plavix PO 75 mg DAILY ELIZABETH Administration Ferrous Sulfate 324 mg 12/10/17 08:00 12/15/17 08:16 Feosol PO 324 mg WB ELIZABETH Administration Finasteride 5 mg 12/10/17 09:00 12/15/17 08:17 Proscar PO 5 mg DAILY ELIZABETH Administration Furosemide 40 mg 12/11/17 09:26 12/15/17 08:18 Lasix 20 Mg Tab PO 40 mg DAILY ELIZABETH Administration Gabapentin 300 mg 12/09/17 21:00 12/15/17 08:17 Neurontin PO 300 mg TID ELIZABETH Administration Ceftriaxone Sodium 1 g/ Sodium 100 mls @ 200 mls/hr 12/09/17 20:30 12/14/17 21:15 Chloride IV Infused Q24H ELIZABETH Infusion Lisinopril 10 mg 12/10/17 09:00 12/15/17 08:17 Prinivil PO 10 mg DAILY ELIZABETH Administration Metoprolol Succinate 50 mg 12/10/17 09:00 12/15/17 08:17 Toprol Xl PO 50 mg DAILY ELIZABETH Administration Mirtazapine 15 mg 12/09/17 21:00 12/14/17 20:30 Remeron PO 15 mg HS ELIZABETH Administration Multivitamins 1 tab 12/10/17 09:00 12/15/17 08:16 Theragran PO 1 tab DAILY ELIZABETH Administration Nitroglycerin 0.4 mg 12/09/17 20:23 Nitrostat SL Q5M PRN CP Omeprazole 20 mg 12/09/17 21:00 12/15/17 06:46 Prilosec PO 20 mg ACBID ELIZABETH Administration Polyethylene Glycol 17 gm 12/14/17 08:36 Miralax PO BID PRN Constipation Prednisone 20 mg 12/12/17 09:32 12/15/17 08:17 Deltasone 20 Mg PO 20 mg WB ELIZABETH Administration Senna/Docusate Sodium 1 tab 12/12/17 09:15 12/15/17 08:17 Senna Plus Tablet PO 1 tab DAILY ELIZABETH Administration Sodium Chloride 10 - 80 ml 12/09/17 16:25 12/14/17 20:30 Iv Flush IVF 10 ml PRN PRN Administration Flushing Terazosin HCl 2 mg 12/09/17 21:00 12/14/17 20:30 Hytrin PO 2 mg HS ELIZABETH Administration Trolamine Salicylate 1 applic 12/10/17 13:38 12/13/17 10:09 Aspercreme TOP 1 applic PRN PRN Administration Discontinued Medications Generic Name Dose Route Start Last Admin Trade Name Freq PRN Reason Stop Dose Admin Albuterol/Ipratropium 3 ml 12/09/17 18:10 12/09/17 18:24 Duoneb AEROSOL 12/09/17 18:11 3 ml O ONE Administration Furosemide 40 mg 12/09/17 17:47 12/09/17 17:51 Lasix 40 Mg/4 Ml IVP 12/09/17 17:48 40 mg O ONE Administration Furosemide 20 mg 12/10/17 09:00 12/11/17 16:19 Lasix 20 Mg Tab PO Not Given DAILY ELIZABETH Furosemide 40 mg 12/11/17 09:25 12/11/17 11:00 Lasix 20 Mg/2 Ml IVP 12/11/17 09:26 Not Given ONCE ONE Haloperidol Lactate 2 mg 12/10/17 01:06 12/13/17 03:27 Haldol IVP 2 mg Q2HR PRN Administration Magnesium Sulfate/Dextrose 1 gm in 100 mls @ 100 mls/hr 12/10/17 11:00 13:51 Mag Sulf 1gm Premix IV 12/10/17 12:59 Infused Q1H ELIZABETH Infusion Metformin HCl 500 mg 12/10/17 08:00 Glucophage PO TIDWM ELIZABETH Morphine Sulfate 2 mg 12/10/17 01:07 12/13/17 04:35 Morphine Sulf 2 Mg Inj IVP 2 mg Q3-4HR PRN Administration Pain Non-Formulary Medication 1 each 12/10/17 12:43 Non-Formulary Medication TOP PRN PRN Pneumococcal 7-Valent Conj Vacc 0.5 ml 12/10/17 16:13 12/10/17 17:38 Prevnar 13 IM 12/10/17 16:14 0.5 ml .ONCE ONE Administration Polyethylene Glycol 17 gm 12/12/17 09:15 12/13/17 21:04 Miralax PO 17 gm BID ELIZABETH Administration Prednisone 40 mg 12/10/17 09:14 12/11/17 16:19 Deltasone 20 Mg PO Not Given WB ELIZABETH Prednisone 30 mg 12/11/17 08:25 12/12/17 08:30 Deltasone 20 Mg PO 30 mg WB ELIZABETH Administration - Constitutional no acute distress, well nourished, average body habitus, cooperative - Routine HEENT Exam Head: Present: normocephalic, atraumatic Eye: Present: EOMI, PERRL ENT: Present: mucous membranes moist - Routine Neck Exam Present: supple, full ROM, trachea midline - Routine Respiratory Exam Present: decreased breath sounds, rhonchi. Absent: accessory muscle use, patient mechanically ventilated - Routine Cardiovascular Exam Present: RRR, S1, S2, no murmur - Routine Abdominal Exam Present: soft, normoactive bowel sounds - Routine Extremities Exam Present: no edema, non tender, full ROM. Absent: cyanosis, clubbing, edema - Routine Back/Spine/Pelvis Exam Back/Spine: Present: full ROM - Routine Skin Exam Present: intact, dry - Routine Neurological Exam Present: alert, oriented X3, CN II-XII intact, moving all extremities alert and oriented x 3 but still appears confused about some things - Routine Psychiatric Exam Present: normal affect, cooperative Results - Laboratory Findings Laboratory: Laboratory Results - last 48 hr 12/13/17 12/13/17 12/13/17 11:39 17:09 20:51 WBC RBC Hgb Hct MCV MCH MCHC RDW Std Deviation Plt Count MPV Turbidity Sodium Potassium Chloride Carbon Dioxide Anion Gap BUN Creatinine GFR Calculation BUN/Creatinine Ratio Glucose Glucometer 251 176 210 Calculated Osmolality Calcium Phosphorus Magnesium Icterus Index Albumin Specimen Hemolysis 12/14/17 12/14/17 12/14/17 05:13 05:13 06:07 WBC 6.8 RBC 2.69 L Hgb 8.7 L Hct 29.1 L MCV 108.2 H MCH 32.3 MCHC 29.9 L RDW Std Deviation 47.7 Plt Count 148 MPV 11.1 Turbidity < 20 Sodium 143 Potassium 4.4 Chloride 97 L Carbon Dioxide 40 H Anion Gap 6 BUN 23.0 H Creatinine 1.1 GFR Calculation 63 BUN/Creatinine Ratio 21 Glucose 107 Glucometer 107 Calculated Osmolality 279 Calcium 8.6 Phosphorus 4.0 Magnesium 1.9 Icterus Index < 2 Albumin 3.1 L Specimen Hemolysis < 15 12/14/17 12/14/17 12/14/17 11:35 17:03 21:23 WBC RBC Hgb Hct MCV MCH MCHC RDW Std Deviation Plt Count MPV Turbidity Sodium Potassium Chloride Carbon Dioxide Anion Gap BUN Creatinine GFR Calculation BUN/Creatinine Ratio Glucose Glucometer 158 201 142 Calculated Osmolality Calcium Phosphorus Magnesium Icterus Index Albumin Specimen Hemolysis 12/15/17 12/15/17 12/15/17 05:06 05:06 06:44 WBC 6.5 RBC 2.73 L Hgb 8.8 L Hct 29.2 L MCV 107.0 H MCH 32.2 MCHC 30.1 L RDW Std Deviation 46.7 Plt Count 159 MPV 11.2 Turbidity < 20 Sodium 143 Potassium 4.1 Chloride 98 Carbon Dioxide 40 H Anion Gap 5 BUN 22.0 H Creatinine 1.1 GFR Calculation 63 BUN/Creatinine Ratio 20 Glucose 104 Glucometer 106 Calculated Osmolality 278 Calcium 8.7 Phosphorus 3.6 Magnesium 2.0 Icterus Index < 2 Albumin 3.0 L Specimen Hemolysis < 15 - Diagnostic Findings Chest x-ray: image reviewed (CXR clear) Assessment and Plan - Assessment and Plan Acute on Chronic Hypoxic Hypercapnic respiratory Failure Likely COPD with exacerbation - 2L O2 at home, no meds or prior workup RSV Pulmonary Hypertension 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 Refusing bipap use at home due to being claustrophobic. On BT's with A/A QID and prednisone 20mg, cont to wean OP. + RSV, on Rocephin for basilar infiltrates, CXR clear today, no sputum cx, BC NTD. Cont acapella and IS. Would likely benefit from OP BT's and OP PFT for COPD severity, send home with nebulizer and A/A QID, f/u in 2-3 weeks. Has a Hx of Pulmonary HTN, VHD, on diuresis per primary. likely home today - Time Spent With Patient Total time spent is greater than 50% in coordination of care (as documented) at patient's floor/unit and/or counseling patient: less than 15 minutes
[2017-12-15 12:09] VITALS: BP 160/71; PULSE 68; TEMP 98
--- NOTE | 2017-12-15 13:56 | Progress Note ---
- Date 12/15/17 Subjective: The patient is doing well today and would like to be discharged. He denies feeling short of breath. He denies feeling dizzy, and has been ambulating well with only standby assistance. He continues to have cough. He denies any abdominal pain or GI complaints. Objective Vital signs: Temperature 98.0 F 12/15/17 11:58 Pulse Rate 68 12/15/17 11:58 Respiratory Rate 22 12/15/17 12:00 Blood Pressure 160/71 H 12/15/17 11:58 Pulse Oximetry 92 12/15/17 12:00 Height/Weight/BMI: Height 1.75 m Weight 106.8 kg Body Mass Index 35.1 - Constitutional Present: no acute distress, well nourished, well developed - Routine HEENT Exam Head: Present: normocephalic Eye: Present: PERRL. Absent: conjunctival icterus, scleral injection - Routine Respiratory Exam Present: decreased breath sounds, wheezes (with cough) Comments: Coarse breath sounds - Routine Cardiovascular Exam Present: RRR, S1, S2 - Routine Abdominal Exam Present: soft, normoactive bowel sounds, non distended, non tender - Routine Extremities Exam Present: edema (1+ bilateral lower extremities) - Routine Skin Exam Present: intact, dry, warm - Routine Neurological Exam Present: alert, oriented X3, moving all extremities, normal speech - Routine Psychiatric Exam Present: normal affect, normal thought process, cooperative Results - Labs CBC & Chem 7: 12/15/17 05:06 12/15/17 05:06 Microbiology Results: Microbiology 12/09/17 18:55 Peripheral/Iv Start Blood Culture - Final No Growth After 5 Days 12/09/17 18:42 Peripheral/Iv Start Blood Culture - Final No Growth After 5 Days Assessment and Plan (1) Acute respiratory failure with hypoxia and hypercapnia Status: Acute Assessment and Plan: Assessment Acute hypoxic, hypercapnic respiratory failure secondary to rhinovirus + COPD exacerbation-chronically on 2 L of oxygen per nasal cannula at home Probable COPD -will need workup as an outpatient but clinically has the disease process Generalized weakness secondary to viral illness Hypernatremia - POA - resolved Macrocytic Anemia - B-12 and folate are normal. Iron sat and total iron are low. 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 Dyslipidemia Cerebrovascular disease history of CVA in 2008 Type 2 diabetes-well controlled with A1c of 5.8 Stage II chronic kidney disease, stable and euvolemic Chronic metabolic alkalosis, presumably compensatory for chronic resp acidosis 2 /2 COPD GERD BPH Osteoarthritis Chronic back pain Depression Encephalopathy/sundowning at night, waxes and wanes. Plan Oxygen requirements are stable, and he denies dyspnea. Discussed discharge planning with pulmonology, there recommending a nebulizer and routine albuterol/Atrovent treatments. They would like for plan to follow- up in 2-3 weeks, at which time they will do pulmonary function tests. Labs are stable - macrocytic anemia with a hemoglobin of 8.8; persistently elevated CO2 level at 40, but this is improved from admission. He is not interested in using BiPAP or a mask to vent at home. Case management is working on discharge options, either home with home health versus half-way. Please see Discharge Summary from this same date.-Dr. Ca Resuscitation Status: Full Code - Physician Narrative Narrative: Date: 12/15/17 Time: 1349 Hospital Course Summary Disclaimer: The visit summary below is not to be considered part of the above Progress Note. Hospital Course: 12/09/17 : Hospital admission to CCU for respiratory failure requiring BiPAP Respiratory panel + for rhinovirus. ABG's -significant hypercapnia. Started Rocephin 1 g IV every 24 hours for possible pneumonia. Macrocytic anemia noted, iron level and iron sat, B12 and folate were ordered. Accu-Cheks were monitored, metformin was held initially. 12/10/17 Respiratory status has improved after BiPAP overnight, likely has chronic CO2 retention. Dr. Christy was consulted for possible COPD with exacerbation. Oral steroids were started. Iron level was low, but vitamin B12 and folate were normal. He was started on daily ferrous sulfate. 12/11/17 Required increased oxygen overnight. Lasix 40 mg IV 1 was given for increasing hypoxia and lower extremity edema. Oral Lasix was increased to 40 mg daily 12/12/17 : Transferred to the medical floor Prednisone decreased to 20 mg daily. Pulmonology recommends outpatient breathing treatments. They would also recommend home vent to mask. Stool for occult blood was negative. Intermittent mild confusion noted. 12/13/17 - 12/14/17 Slowly improving. Patient typically refuses to wear BiPAP at night. States he will not wear BiPAP or the like at home. 12/15/17 Pulmonology recommends a nebulizer and routine albuterol/Atrovent treatments. They would like for plan to follow-up in 2-3 weeks, at which time they will do pulmonary function tests. Continue oxygen at 2 L. Continue with prednisone taper, 10 mg daily 4 days. Labs are stable - macrocytic anemia, and persistently elevated CO2 level at 40, but this is improved from admission. Discontinue antibiotics at time of discharge. Weight is still trending up, 106 kg. We'll continue higher dose of Lasix 40 mg daily. He is not on potassium supplementation, and his potassium was 4.4 on discharge. Follow-up with Dr. Amos within 1 week.
--- NOTE | 2017-12-15 14:33 | Discharge Summary ---
Discharge Information Date of admission: 12/09/17 18:16 Anticipated date of discharge: 12/15/17 Attending Physician: Ailin Ca MD Primary care physician: Aakash Amos MD Consults: Consulting Provider: Guillermo Christy Reason: Respiratory failure - Discharge Diagnosis (1) Acute respiratory failure with hypoxia and hypercapnia Status: Acute Acute hypoxic, hypercapnic respiratory failure secondary to rhinovirus + COPD exacerbation-chronically on 2 L of oxygen per nasal cannula at home - improved Probable COPD -will need workup as an outpatient but clinically has the disease process Generalized weakness secondary to viral illness Hypernatremia - POA - resolved Macrocytic Anemia - B-12 and folate are normal. Iron sat and total iron low. Thrombocytopenia - POA - resolved HTN Chronic systolic and diastolic heart failure Severe pulmonary hypertension with tricuspid regurgitation Possible pneumonia with infiltrate on chest x-ray on admission, repeat chest x- ray 12/10 is clear , chest x-ray 12/11/2017 shows increasing infiltrate versus atelectasis in the left base-Lasix dose increased History of tobacco use. Dyslipidemia Cerebrovascular disease history of CVA in 2008 Type 2 diabetes-well controlled with A1c of 5.8 Stage II chronic kidney disease, stable and euvolemic Chronic metabolic alkalosis, presumably compensatory for chronic respiratory acidosis 2/2 COPD GERD BPH Osteoarthritis Chronic back pain Depression Encephalopathy/sundowning at night, waxes and wanes. - Laboratory Labs: 12/15/17 05:06 12/15/17 05:06 - Microbiology Microbiology 12/09/17 18:55 Peripheral/Iv Start Blood Culture - Final No Growth After 5 Days 12/09/17 18:42 Peripheral/Iv Start Blood Culture - Final No Growth After 5 Days - Radiology Radiology: Date of Exam: 12/09/17 PROCEDURE: CHEST 2-VIEWS UPRIGHT (PA & LAT) FINDINGS: Lungs show mild basilar airspace disease in the posterior lower lobes on the lateral view. Some of this is chronic. Chronic area of scarring in the left base. No pleural effusion or pneumothorax. Cardiac silhouette remains enlarged. Mediastinal contours are stable. Pulmonary vascularity is normal. Impression: Posterior lower lobe airspace opacities could represent pneumonia, atelectasis or scarring. = = = = = = = = = = = = = = = = = = = = = = = = = = = = = = = = = = = = = = = = = = = = = = = = = = = = = = = = = = = Date of Exam: 12/10/17 PROCEDURE: XR chest 1V: Impression: No acute cardiopulmonary disease. = = = = = = = = = = = = = = = = = = = = = = = = = = = = = = = = = = = = = = = = = = = = = = = = = = = = = = = = = = = Date of Exam: 12/11/17 PROCEDURE: XR chest 1V: Findings: Increasing airspace disease in the left lower lobe with a small left effusion. Right lung remains grossly clear. No pneumothorax. Heart size and mediastinal contours are stable. Pulmonary vascularity is stable. Impression: Increasing airspace disease in the left lower lobe could represent atelectasis or pneumonia. = = = = = = = = = = = = = = = = = = = = = = = = = = = = = = = = = = = = = = = = = = = = = = = = = = = = = = = = = = = Date of Exam: 12/15/17 PROCEDURE: XR chest 2V: Impression: Interval clearing of the left basilar opacity with a small amount of residual right basilar atelectasis and/or scarring. History of Present Illness HPI: Pt is an 87 yo male who has had a 2 day h/o of cough, increased mucous, weakness and low O2 sats. noted sats in the 60-70's this am prompting his ER visit. He is usually on 2L O2 at home. No Bipap or CPAP. History taken from pt and his in the CCU. Objective Vital signs: Temperature 98.0 F 12/15/17 11:58 Pulse Rate 68 12/15/17 11:58 Respiratory Rate 22 12/15/17 12:00 Blood Pressure 160/71 H 12/15/17 11:58 Pulse Oximetry 92 12/15/17 12:00 Height/Weight/BMI: Height 1.75 m Weight 106.8 kg Body Mass Index 35.1 Hospital Course This is a general summary of the patient's hospital course. For more details refer to the complete medical record. Hospital course: 12/09/17 : Hospital admission to CCU for respiratory failure requiring BiPAP Respiratory panel + for rhinovirus. ABG's -significant hypercapnia. Started Rocephin 1 g IV every 24 hours for possible pneumonia. Macrocytic anemia noted, iron level and iron sat, B12 and folate were ordered. Accu-Cheks were monitored, metformin was held initially. 12/10/17 Respiratory status has improved after BiPAP overnight, likely has chronic CO2 retention. Dr. Christy was consulted for possible COPD with exacerbation. Oral steroids were started. Iron level was low, but vitamin B12 and folate were normal. He was started on daily ferrous sulfate. 12/11/17 Required increased oxygen overnight. Lasix 40 mg IV 1 was given for increasing hypoxia and lower extremity edema. Oral Lasix was increased to 40 mg daily 12/12/17 : Transferred to the medical floor Prednisone decreased to 20 mg daily. Pulmonology recommends outpatient breathing treatments. They would also recommend home vent to mask. Stool for occult blood was negative. Intermittent mild confusion noted. 12/13/17 - 12/14/17 Slowly improving. Patient typically refuses to wear BiPAP at night. States he will not wear BiPAP or the like at home. 12/15/17: Discharge to [facility] Pulmonology recommends a nebulizer and routine albuterol/Atrovent treatments. They would like for plan to follow-up in 2-3 weeks, at which time they will do pulmonary function tests. Continue oxygen at 2 L. Continue prednisone taper, 10 mg daily 4 days. Discontinue antibiotics at time of discharge. Labs are stable - macrocytic anemia, and persistently elevated CO2 level at 40, but this is improved from admission. Weight is still trending up, 106 kg. Continue higher dose of Lasix 40 mg daily 3 days, then resume 20 mg daily. Potassium was 4.4 on discharge. Follow-up with Dr. Amos within 1 week. Time spent with patient: discharge greater than 30 minutes Resuscitation Status: Full Code Discharge Plan - Discharge Disposition Discharge Date: 12/15/17 Disposition: 03 To U Not [facility] ([facility]) *Condition: Improved Reason For Visit (Visit label in EMR): acute respiratory failure - Discharge Medications Medication Comments: Take Lasix 40 mg daily on 12/16, 12/17, and 12/18. On 12/19, decrease dose to 20 mg daily. *Discharge Medications: New Furosemide [Lasix 20 mg Tab] 40 mg PO DAILY 3 Days tab PredniSONE [Deltasone 20 mg] 10 mg PO WB 4 Days #2 tab Senna + Docusate [Senna Plus Tablet] 1 tab PO DAILY tab Albuterol/Ipratropium [Duoneb] 3 ml AEROSOL RTQID #1 box Continue Nitroglycerin [Nitrostat] 0.4 mg SL Q5M PRN #0 PRN Reason: CHEST PAIN Clopidogrel [Plavix] 75 mg PO DAILY Ferrous Sulfate 325 mg PO DAILY Metoprolol Succinate 50 mg PO DAILY Gabapentin 300 mg PO TID Omeprazole 20 mg PO BID Finasteride [Proscar] 5 mg PO DAILY Multi-Vitamin Plain [Theragran] 1 tab PO DAILY Aspirin [Aspirin EC] 81 mg PO DAILY Metformin [Glucophage] 500 mg PO TIDWM Mirtazapine [Remeron] 15 mg PO HS Terazosin [Hytrin] 2 mg PO HS Furosemide [Lasix] 20 mg PO DAILY #30 Atorvastatin Calcium 20 mg PO HS #0 Lisinopril [Prinivil] 10 mg PO DAILY Vit B Comp/C/FA/Iron Sulf/Nettie [Stress Formula with Iron Tab] 1 each PO DAILY Discontinued cefUROXime axetil [Cefuroxime] 500 mg PO BID - Discharge Packet/Instructions *Diet: Low fat, low sodium, carbohydrate consistent. *Activity: Use walker when ambulating. *Pain Management/Treatment: Tylenol if needed. Continue gabapentin. *Wound Care: N/A Additional Instructions: Continue oxygen to maintain saturations of >= 90%. Baseline is 2L. *Expected Signs/Symptoms: Cough and shortness of breath may linger for several days because of rhinovirus infection and COPD exacerbation. *Notify Physician if: Increased shortness of breath, fever, chest pain, altered mental status, passing out, vomiting or diarrhea, or any new concerns. *During Business Hours Contact: Dr. Amos' office @ [facility]. *After Business Hours Contact: The on-call provider for Dr. Amos. *Pending Lab/Results: No Pending Lab Outpatient Orders: BMP - Basic Metabolic - [facility] Time Frame: 1 Week, Location: None Selected - Referrals/Follow Up *Referrals/Follow Up: Guillermo Christy MD [Physician] - 3 Weeks (Schedule PFTs) Aakash Amos MD [Primary Care Provider] - 1 Week - Patient Handouts Patient Handouts: Weakness (GEN) - Dismissal Complete Discharge Instructions are:: Complete Physician Narrative - Narrative Attestation Narrative: Date: 12/15/17 Time: 3:15 PM-I reviewed this chart, the patient history, and the PACKING MACHINE TENDER's/PA's documented findings as above. We discussed and formulated the assessment and plan as above with the additions below.-Dr. Ca The patient was seen this afternoon in his room accompanied by his . He states he is feeling a lot better. His breathing has improved. He continues to have a cough. He denies shortness of breath. He is eating and drinking well. He feels ready for discharge from the hospital, that he and his are both concerned that he is not quite ready to go home. They did bring up the possibility of residential in [place] to improve his strengthening and monitor his respiratory status before dismissal back to home. On exam he is alert and in no acute distress. He does have some memory decline but is much more alert than last week. Chest is clear to auscultation. Cardiovascular reveals a regular rate and rhythm. Abdomen is soft and nontender. Extremities reveal +1 edema. Basic metabolic profile is essentially normal. Hemoglobin is stable at 8.8. Impression and plan Acute on chronic hypoxic and hypercapnic respiratory failure has improved. He appears to be back to baseline. He will need oxygen at 2 L per nasal cannula continuously. He did qualify for home BiPAP/Ventimask for chronic hypercapnea, but he declined secondary to inability to tolerate BiPAP. Regarding probable COPD-the patient will be discharged on breathing treatments and will need follow-up with Dr. Christy for pulmonary function testing. The patient will be discharged on a decreasing dose of steroids. Antibiotics will be discontinued. Regarding lower extremity edema, he will be on Lasix 40 mg once a day for 3 more days and then back to his usual 20 mg of Lasix. I did call and discussed hospital findings and discharge plans with the patient' s primary care physician, Dr. Shade Amos.
--- NOTE | 2017-12-15 14:52 | Extended Care Facility Orders ---
<Kath Patterson - Last Filed: 12/15/17 14:50> Admission Orders Admit to:: Residential Allergies/Adverse Reactions: Allergies citalopram Adverse Reaction (Unknown, Verified 06/19/16 10:40) NERVOUSNESS, JITTERY Admitting Diagnosis: acute respiratory failure Admitting Physician: Ailin Ca MD Attending Physician: Ailin Ca MD Code Status: Full Code Anticiapted Length of Stay: 30 days or less Rehab Potential: good Rehab Prognosis: good Diet: Cardiac Consistent Carbohydrate Diet Calorie Level: 1999 Sodium Restriction: 2 GRAM Fat Content: LOW May use Facility Protocol or Standing Orders: Yes May have flu vaccine: Yes Evaluations/Treatment: PT, OT Residential Certification: I certify that SNF services are required to be given on an Inpatient basis because of the patient's need for long term care on a continuing basis for the condition(s) for which he received inpatient hospital services prior to his transfer to the SNF. SNF inpatient care is necessary for the following reasons: Indication for Residential: Teach COPD Management - Additional Information In Event of Arrest: Start CPR,call 911,send patient to the ER Laboratory/Radiology: BMP in 1 week. Send results to Dr. Amos. Referrals: Guillermo Christy MD [Physician] - 3 Weeks (Schedule PFTs) Aakash Amos MD [Primary Care Provider] - 1 Week Additional Orders: Continuous oxygen to maintain saturations >= 90%. Baseline is 2L. Daily weights. CHF zones instructions. <Ailin Ca - Last Filed: 12/15/17 15:05> Admission Orders Admitting Diagnosis: acute respiratory failure Admitting Physician: Ailin Ca MD Attending Physician: Ailin Ca MD Code Status: Full Code Diet: 12/09/17 Dinner Cardiac Consistent Carbohydrate Diet [DIET] Calorie Level: 1999 Sodium Restriction: 2GRAM Fat Content: LOW Residential Certification: I certify that SNF services are required to be given on an Inpatient basis because of the patients need for long term care on a continuing basis for the condition(s) for which he/she received inpatient hospital services prior to his/her transfer to the SNF. SNF inpatient care is necessary for the following reasons
[2017-12-15 15:29] VITALS: RESP 20; O2SAT 94
== END 2017-12-15 16:03 | DRG 190 ==
LOC: ED 16:02 → CCU 18:16 → MED 12-12 11:17
PROVIDERS: ADMIT Internal Medicine; ATTEND Internal Medicine